=== PATIENT | female | born 1995 | race Caucasian/White ===

== ENCOUNTER 2017-06-01 17:58 | Emergency (ER) | payer OTHER, BC ==
[2017-06-01 18:09] VITALS: BP 172/108
[2017-06-01] MEDS ORDERED: HYDROmorphone 0.5 MG/0.5 ML Syringe IM ONE (19:28)
--- NOTE | 2017-06-01 19:38 | EDM.PDOC ---
ED HPI GENERAL MEDICAL PROBLEM - General Chief Complaint: Back Pain or Injury Stated Complaint: RIB AND ARM PAIN Time Seen by Provider: 06/01/17 19:16 Source of Information: Reports: Patient History Limitations: Reports: No Limitations - History of Present Illness INITIAL COMMENTS - FREE TEXT/NARRATIVE: Patient is a 21-year-old female who is 35 weeks who complains of left- sided chest wall pain. States initially she had pain to the upper back earlier this afternoon that felt like a knot. With increased pain with movement of her left extremity. States around 1500 hrs. She was moving a large stone carving with another individual. She was pulling this object and upon doing so experience increased pain to the left scapula with radiation discomfort along the left lower chest wall worsened with palpation and movement of her left extremity. Pain is described as a sharp/crampy constant sensation with waxing waning in intensity. Worsened with palpation. Described as a muscle spasm. She has not taken any [id number] medications to help alleviate the discomfort nor tried any other means to improve her pain. She is not short of breath but notes discomfort worsens with taking a deep breath. She is 35 weeks and was cleared by OB prior to admission to the ED. Patient has no additional past medical history. She taking take Diclegis and vitamins. Surgical history noncontributory. Patient denies smoking history alcohol use or recreational drugs. She has no history of DVT or PE. Left Upper Back Pain Score (Numeric/FACES): 10 - Related Data Allergies Allergy/AdvReac Type Severity Reaction Status Date / Time adhesive Allergy Cannot Verified 06/01/17 18:09 Remember carrot Allergy Cannot Verified 06/01/17 18:09 Remember codeine Allergy Other Verified 06/01/17 18:09 Fish Containing Products Allergy Other Verified 06/01/17 18:09 peanut Allergy Anaphylactic Verified 06/01/17 18:09 Shock wheat Allergy Cannot Verified 06/01/17 18:09 Remember Home Meds: Home Meds Desog-E.Estradiol/E.Estradiol [Kariva 28 Day] 1 tab PO DAILY 03/11/16 [History] Levocetirizine Dihydrochloride [Xyzal] 5 mg PO DAILY 03/11/16 [History] Methylphenidate HCl [Concerta] 36 mg PO DAILY 03/11/16 [History] Sertraline [Zoloft] 25 mg PO DAILY 03/11/16 [History] Aspirin 325 mg PO BID #60 tablet 03/12/16 [Rx] traMADol [Ultram] 1 - 2 tab PO Q6H PRN #40 tablet 03/12/16 [Rx] Acetaminophen/HYDROcodone [[place] 325-5 MG] 1 tab PO Q6H PRN #10 tablet 06/01/17 [Rx] Past Medical History Respiratory History: Reports: Asthma Gastrointestinal History: Reports: Other (See Below) Other Gastrointestinal History: enzyme deficiency trouble with digesting milk Other Musculoskeletal History: chronic shoulder/neck discomfort Psychiatric History: Reports: ADHD, Anxiety, Depression Dermatologic History: Reports: Eczema Other Dermatologic History: skin lesion excsion x 2 - Past Surgical History HEENT Surgical History: Reports: Tonsillectomy Social & Family History - Family History Family Medical History: Noncontributory - Tobacco Use Smoking Status *Q: Never Smoker Second Hand Smoke Exposure: Yes - Caffeine Use Caffeine Use: Reports: Soda, Tea - Recreational Drug Use Recreational Drug Use: Yes ED ROS GENERAL - Review of Systems Review Of Systems: See Below Constitutional: Denies: Fever, Chills Respiratory: Denies: Shortness of Breath, Wheezing, Cough, Sputum, Hemoptysis Cardiovascular: Reports: Chest Pain. Denies: Dyspnea on Exertion, Palpitations , Syncope GI/Abdominal: Denies: Abdominal Pain, Constipation, Diarrhea, Nausea, Vomiting : Reports: No Symptoms Musculoskeletal: Reports: No Symptoms Skin: Reports: No Symptoms Neurological: Reports: No Symptoms Hematologic/Lymphatic: Reports: Anemia (Hx of anemia. ) ED EXAM, GENERAL - Physical Exam Exam: See Below Exam Limited By: No Limitations General Appearance: Alert, WD/WN, Moderate Distress Ears: Hearing Grossly Normal Nose: Normal Inspection Throat/Mouth: Normal Voice, No Airway Compromise Neck: Normal Inspection, Supple Respiratory/Chest: No Respiratory Distress, Lungs Clear, Normal Breath Sounds, No Accessory Muscle Use, Other (tenderness to the left lower rib cage (mid clavicular) radiates around to her back. Increased pain with palpation and lifting of the left arm above the shoulder. Pain is a crampy sharp sensation described as a muscle spasm.). No: Pleural Rub Cardiovascular: Normal Peripheral Pulses, Regular Rate, Rhythm, No Murmur Peripheral Pulses: 2+: Radial (L) GI/Abdominal: Normal Bowel Sounds, Soft, Non-Tender (Including no pain with palpation underneath the left rib cage.), No Organomegaly, No Distention Back Exam: Normal Inspection, Full Range of Motion, Other (Pain along the superior aspect of the left scapula with palpation. No bruising, bony deformities, ecchymosis present.). No: Paraspinal Tenderness, Vertebral Tenderness Extremities: Normal Inspection, Normal Range of Motion, Non-Tender, No Pedal Edema, Normal Capillary Refill Neurological: Alert, Oriented, CN II-XII Intact, Normal Cognition Psychiatric: Normal Affect, Normal Mood Skin Exam: Warm, Dry, Intact, Normal Color, No Rash Course - Vital Signs Last Recorded V/S: Last Vital Signs Temp 97.8 F 06/01/17 18:05 Pulse 99 06/01/17 18:05 Resp 16 06/01/17 18:05 BP 172/108 H 06/01/17 18:05 Pulse Ox 100 06/01/17 18:05 - Orders/Labs/Meds Meds: Medications Discontinued Medications Generic Name Dose Route Start Last Admin Trade Name Mera PRN Reason Stop Dose Admin Hydromorphone HCl 0.5 mg 06/01/17 19:28 06/01/17 19:35 Dilaudid IM 06/01/17 19:29 0.5 mg ONETIME ONE Administration Ondansetron HCl 4 mg 06/01/17 20:15 06/01/17 20:19 Zofran Odt PO 06/01/17 20:16 4 mg ONETIME ONE Administration - Re-Assessments/Exams Free Text/Narrative Re-Assessment/Exam: Examination elicited increased pain along the bottom of the left rib cage extending from the mid clavicular region along the rib cage into her back. States the pain came on abruptly at 1500 hrs with worsening symptoms noted since onset. Pain is worsened with palpation, taking a deep breath, and with lifting arm above her shoulder. Pain decreases with lowering arm to side and resting. No known precipitating factors contributing to the pain. She is 35 wks with recent evaluation indicating everything is okay. She is due in one month. Overall has been present with no issues. Ordered dilaudid 0.5mg IM for pain control. Will not obtain CXR with abdominal shielding, patient refuses. Discussed the case with Dr. Carvalho to which he agrees with plan. Most likely etiology of current complaint is muscle related. Low probability for PE or spontaneous pneumothorax. No labs will be obtained. Of note patient states today she was moving a large carved stone. She was pulling across her body. Pain worsened after doing so. 06/01/17 20:19 Patient complaining of nausea. Ordered Zofran 4 mg ODT. 06/01/17 20:59 moderate relief of pain with the above therapies. Pain still persists to the lower rib region worsen with lifting the arm above the shoulders.There is also pain with palpation. Vital signs are stable. 155/98, heart rate 97, SPO2 100%. Patient started vomiting after administration of Dilaudid. She feels quite a bit better. She is ready to be discharged home. Will send the patient home with pain medications [place] 5-325 to which she can take intermittently for severe pain. No further testing will be obtained at this time. Departure - Departure Time of Disposition: 21:02 Disposition: Home, Self-Care 01 Condition: Good Clinical Impression: Left-sided chest wall pain - Discharge Information Prescriptions: Acetaminophen/HYDROcodone [[place] 325-5 MG] 1 tab PO Q6H PRN #10 tablet PRN Reason: Pain (Severe 7-10) Instructions: Muscle Strain, [id number], Pain Medicine Instructions, Easy-to- Read, Back Pain, Adult, [id number] Referrals: Rayo Villa MD [Primary Care Provider] - Forms: ED Department Discharge Additional Instructions: Refrain from any activities that cause worsening pain. Take Tylenol 600 mg every 6 hours for pain. Utilize warm compresses and ice to the affected area as needed. For severe pain not relieved with the above therapies take [place] one tab every 6 hours. Be mindful this will cause constipation thus suggest taking MiraLAX one capful every day with copious amounts of water and increase fiber intake. Follow-up with your [facility] specialist next week for reevaluation. Return to ED for any new or worsening symptoms.
[2017-06-01] MEDS ORDERED: Ondansetron 4 MG Tab.DIS PO ONE (20:15)
== END 2017-06-01 21:19 | disposition home or self-care (01) ==
LOC: JD.ED 17:58
DX: O26.893 Other specified pregnancy related conditions, third trimester (principal); R07.89 Other chest pain; Z3A.37 37 weeks gestation of pregnancy; Z91.09 Other allergy status, other than to drugs and biological substances; Z88.5 Allergy status to narcotic agent; Z91.010 Allergy to peanuts; Z91.02 Food additives allergy status; O99.343 Other mental disorders complicating pregnancy, third trimester; O99.513 Diseases of the respiratory system complicating pregnancy, third trimester; F41.8 Other specified anxiety disorders
CPT/HCPCS: 96372; 99285; A9270; J1170; 99283

== ENCOUNTER 2017-06-30 18:29 | Inpatient (IN) | payer OTHER ==
[2017-06-30] MEDS ORDERED: Sodium Chloride 0.9% 10 ML Syringe FLUSH PRN (19:16)
[2017-06-30] MEDS ORDERED: Labetalol 100 MG/20 ML MDV ONE (19:53)
[2017-06-30] MEDS ORDERED: Labetalol 100 MG/20 ML MDV IVPUSH ONE ×2 (19:53→20:18)
[2017-06-30] MEDS: Sertraline 25 MG Tab PO SCH (20:00)
--- NOTE | 2017-06-30 20:02 | PCM.LDHP ---
L&D History of Present Illness - General Date of Service: 06/30/17 Admit Problem/Dx: Admission Diagnosis/Problem Admission Diagnosis/Problem Source of Information: Patient History Limitations: Reports: No Limitations - History of Present Illness Introduction:: Patient is a 22 y/o at 39 5/7 wks presents for concerns of labor. States that contractions started last night around 2200. Have continued since then and become closely together. No LOF. Getting good FM. No headaches, vision changes, or RUQ pain. - Related Data Allergies/Adverse Reactions: Allergies Allergy/AdvReac Type Severity Reaction Status Date / Time peanut Allergy Severe Anaphylactic Verified 06/30/17 19:08 Shock tree nut Allergy Severe Anaphylactic Verified 06/30/17 19:08 Shock adhesive Allergy Intermediate Blisters Verified 06/30/17 19:05 codeine Allergy Intermediate Hives Verified 06/30/17 19:08 carrot Allergy Unknown Other Verified 06/30/17 19:08 Fish Containing Products Allergy Unknown Other Verified 06/30/17 19:08 wheat Allergy Unknown Other Verified 06/30/17 19:08 Home Medications: Home Meds Desog-E.Estradiol/E.Estradiol [Kariva 28 Day] 1 tab PO DAILY 03/11/16 [History] Levocetirizine Dihydrochloride [Xyzal] 5 mg PO DAILY 03/11/16 [History] Methylphenidate HCl [Concerta] 36 mg PO DAILY 03/11/16 [History] Sertraline [Zoloft] 25 mg PO DAILY 03/11/16 [History] Aspirin 325 mg PO BID #60 tablet 03/12/16 [Rx] traMADol [Ultram] 1 - 2 tab PO Q6H PRN #40 tablet 03/12/16 [Rx] Acetaminophen/HYDROcodone [[place] 325-5 MG] 1 tab PO Q6H PRN #10 tablet 06/01/17 [Rx] Past Medical History Respiratory History: Reports: Asthma Musculoskeletal History: Reports: Other (See Below) Other Musculoskeletal History: chronic shoulder/neck discomfort Psychiatric History: Reports: ADHD, Anxiety, Depression Dermatologic History: Reports: Eczema - Past Surgical History HEENT Surgical History: Reports: Naso-Sinus Surgery (nasal turbinate surgery), Tonsillectomy Musculoskeletal Surgical History: Reports: Arthroscopic Knee Social & Family History - Family History Family Medical History: Noncontributory - Tobacco Use Smoking Status *Q: Never Smoker Second Hand Smoke Exposure: Yes - Caffeine Use Caffeine Use: Reports: Soda, Tea - Alcohol Use Alcohol Use History: No - Recreational Drug Use Recreational Drug Use: Yes H&P Review of Systems - Review of Systems: Review Of Systems: See Below General: Reports: No Symptoms Pulmonary: Reports: No Symptoms Cardiovascular: Reports: No Symptoms Gastrointestinal: Reports: Abdominal Pain Genitourinary: Reports: No Symptoms Musculoskeletal: Reports: No Symptoms Psychiatric: Reports: Anxiety L&D Exam - Exam Exam: See Below - Vital Signs Weight: 65.317 kg - OB Specific Contraction Intensity: Mild Movement: Active Heart Tones: Present Heart Tones per Min: 130 Heart Rate (FHR) Variability: Moderate (6-25 bmp) Presentation: Vertex - Exam General: Alert, Oriented, Cooperative Lungs: Clear to Auscultation, Normal Respiratory Effort Cardiovascular: Regular Rate, Regular Rhythm GI/Abdominal Exam: Soft Genitourinary: Normal external exam Extremities: Normal Inspection Skin: Warm, Dry, Intact Neurological: Reflexes Equal Bilateral DTR: 3+: Patella (L), Patella (R) Psychiatric: Anxious - Patient Data Lab Results Last 24 hrs: Laboratory Results - last 24 hr // Range/Units 19:40 WBC 13.80 H (3.98-10.04) K/mm3 RBC 3.86 L (3.98-5.22) M/mm3 Hgb 12.2 (11.2-15.7) gm/L Hct 35.2 (34.1-44.9) % MCV 91.2 (79.4-94.8) fl MCH 31.6 (25.6-32.2) pg MCHC 34.7 (32.2-35.5) g/dl RDW Std Deviation 41.2 (36.4-46.3) fL Plt Count 295 (182-369) K/mm3 MPV 9.5 (9.4-12.3) fl Neut % (Auto) 71.7 H (34.0-71.1) % Lymph % (Auto) 18.8 L (19.3-51.7) % Potter % (Auto) 8.4 (4.7-12.5) % Eos % (Auto) 0.7 (0.7-5.8) Baso % (Auto) 0.1 (0.1-1.2) % Neut # (Auto) 9.89 H (1.56-6.13) K/mm3 Lymph # (Auto) 2.59 (1.18-3.74) K/mm3 Potter # (Auto) 1.16 H (0.24-0.36) K/mm3 Eos # (Auto) 0.10 (0.04-0.36) K/mm3 Baso # (Auto) 0.02 (0.01-0.08) K/mm3 Result Diagrams: 06/30/17 19:40 06/30/17 19:40 - Problem List (1) 39 weeks gestation of SNOMED Code(s): 34764904 ICD Code: Z3A.39 - 39 WEEKS GESTATION OF Status: Acute Current Visit: Yes (2) Preeclampsia SNOMED Code(s): 460657397 ICD Code: O14.90 - UNSPECIFIED PRE-ECLAMPSIA, UNSPECIFIED TRIMESTER Status : Acute Current Visit: Yes Qualifiers: Trimester: third trimester Qualified Code(s): O14.93 - Unspecified pre- eclampsia, third trimester Problem List Initiated/Reviewed/Updated: Yes Orders Last 24hrs: Active Orders 24 hr Category Date Time Status Bedrest Bathroom Privileges [RC] ASDIRECTED Care 06/30/17 19:16 Active Communication Order [RC] ASDIRECTED Care 06/30/17 19:17 Active Monitoring [RC] CONTINUOUS Care 06/30/17 19:17 Active Notify Provider Status Change [RC] ASDIRECTED Care 06/30/17 19:16 Active Notify Provider Vital Signs [RC] ASDIRECTED Care 06/30/17 19:16 Active Oxygen Therapy [RC] PRN Care 06/30/17 19:17 Active Peripheral IV Care [RC] . DIRECTED Care 06/30/17 19:18 Active Vital Signs [RC] ASDIRECTED Care 06/30/17 19:17 Active ALANINE AMINOTRANSFERASE,ALT [CHEM] Stat Lab 06/30/17 19:40 Received ASPARTATE AMNIOTRANSFERASE,AST [CHEM] Stat Lab 06/30/17 19:40 Received BLOOD UREA NITROGEN,BUN [CHEM] Stat Lab 06/30/17 19:40 Received CREATININE W/GFR [CHEM] Stat Lab 06/30/17 19:40 Received LACTATE DEHYDROGENASE,LDH [CHEM] Stat Lab 06/30/17 19:40 Received TYPE AND SCREEN [BBK] Stat Lab 06/30/17 19:40 Received UA W/O MICROSCOPIC [URIN] Stat Lab 06/30/17 19:16 Ordered URIC ACID [CHEM] Stat Lab 06/30/17 19:40 Received Sertraline [Zoloft] Med 06/30/17 21:00 Active 25 mg PO BEDTIME Sodium Chloride 0.9% [Saline Flush] Med 06/30/17 19:16 Active 10 ml FLUSH ASDIRECTED PRN Blood Pressure [OM.PC] ASDIRECTED Oth 06/30/17 19:30 Ordered Deep Tendon Reflexes [WOMSER] ASDIRECTED Oth 06/30/17 19:30 Ordered PIH Panel [OM.PC] Stat Oth 06/30/17 19:16 Ordered Peripheral IV Insertion Adult [OM.PC] Urgent Oth 06/30/17 19:16 Ordered Medication Orders Sertraline HCl (Zoloft) 25 mg PO BEDTIME CELI Sodium Chloride (Saline Flush) 10 ml FLUSH ASDIRECTED PRN PRN Reason: Keep Vein Open Assessment/Plan Comment:: 22 y/o at 39 5/7 wks presents for concerns of labor - likely not labor, but initial BP's of 163/102, 159/107, and 150/99. Patient is extremely anxious and shaking in exam room, but regardless feel it is pertinent to keep for IOL. Labs ordered. IV placed. IV labetalol, 20 mg, given. Will monitor to see if BP's come down appropriately. If they do will move forward with IOL. If not may need to proceed with PLTCS. ----- Patient BP's after 20 mg of Labetalol are 173/107. Will given 40 mg of IV labetalol. Will start magnesium as well. Labs have returned all WNL. ---- Bp's now 154/90, 139/95, 127/85. Will move forward with IOL. First cytotec placed. Continue magnesium infusion. Will assess BP's closely for need for additional anti-hypertensive agents. GBS negative, no need for antibiotics Brielle Bennett MD
[2017-06-30] MEDS ORDERED: Magnesium Sulfate/Water 2 GM in Premix Bag 1 BAG IV ONE (20:20)
[2017-06-30] MEDS ORDERED: Magnesium Sulfate/Water 100 ML ONE (20:20)
[2017-06-30] MEDS ORDERED: Magnesium Sulfate/Water 4 GM in Premix Bag 1 BAG IV ONE (20:20)
[2017-06-30] MEDS ORDERED: Magnesium Sulfate/Water 50 ML ONE (20:20)
[2017-06-30] MEDS: Lactated Ringers 1,000 ML IV SCH (20:34)
[2017-06-30] MEDS: Misoprostol 25 MCG (1/4 of 100 MCG) Tab ONE (20:50)
[2017-06-30] MEDS: Misoprostol 25 MCG (1/4 of 100 MCG) Tab VAG PRN (20:50)
[2017-06-30] MEDS ORDERED: Misoprostol 100 MCG Tab VAG PRN (20:53)
[2017-06-30] MEDS ORDERED: Zolpidem 5 MG Tab PO PRN (20:53)
[2017-06-30] MEDS ORDERED: Oxytocin/Lactated Ringers 10 UNIT/1,000 ML BAG IV SCH (21:00)
[2017-06-30] MEDS: Magnesium Sulfate/Water 40 GM/1,000 ML BAG IV SCH (21:06)
[2017-06-30] MEDS: Ondansetron 4 MG/2 ML SDV IVPUSH PRN (21:15)
[2017-06-30] MEDS ORDERED: Diphtheria,Pertussis(Acell),Tetanus Vaccine 0.5 ML SDV IM ONE (22:39)
[2017-07-01] MEDS ORDERED: Misoprostol 25 MCG (1/4 of 100 MCG) Tab ONE (01:00)
[2017-07-01] MEDS: Misoprostol 25 MCG (1/4 of 100 MCG) Tab VAG PRN ×2 (01:24→05:03)
[2017-07-01] MEDS: Misoprostol 25 MCG (1/4 of 100 MCG) Tab ONE (01:32)
[2017-07-01] MEDS: Ondansetron 4 MG/2 ML SDV IVPUSH PRN ×2 (01:40→06:36)
[2017-07-01] MEDS ORDERED: diphenhydrAMINE 50 MG/ML SDV IVPUSH PRN (02:09)
[2017-07-01] MEDS ORDERED: fentaNYL 100 MCG/2 ML SDV EPIDUR PRN (02:09)
[2017-07-01] MEDS ORDERED: ePHEDrine 50 MG/ML SDV IVPUSH PRN (02:09)
[2017-07-01] MEDS: Lactated Ringers 1,000 ML IV SCH ×2 (02:21→08:12)
[2017-07-01] MEDS: Bupivacaine/fentaNYL/NS 100 ML Bag EPIDUR SCH ×3 (02:45→18:05)
--- NOTE | 2017-07-01 02:45 | PCM.PREANE ---
Preanesthetic Assessment - Anesthesia/Transfusion/Family Hx Anesthesia History: Prior Anesthesia Without Reaction (combative) Family History of Anesthesia Reaction: No Transfusion History: No Prior Transfusion(s) - Review of Systems General: No Symptoms Pulmonary: No Symptoms Cardiovascular: No Symptoms Gastrointestinal: Nausea (today), Vomiting (today) Neurological: No Symptoms Other: Reports: None, Depression, Anxiety - Physical Assessment Pulse: 89 O2 Sat by Pulse Oximetry: 99 Respiratory Rate: 18 Blood Pressure: 173/107 Vital Signs: Last Vital Signs Temp 98.9 F 06/30/17 20:10 Pulse 89 06/30/17 20:20 Resp 18 06/30/17 20:10 BP 173/107 H 06/30/17 20:20 Pulse Ox 99 06/30/17 20:10 Height: 4 ft 9 in Weight: 65.317 kg ASA Class: 2E Mental Status: Alert & Oriented x3 Airway Class: Mallampati = 1 Dentition: Reports: Normal Dentition Thyro-Mental Finger Breadths: 3 Mouth Opening Finger Breadths: 3 ROM/Head Extension: Full Lungs: Clear to Auscultation, Normal Respiratory Effort Cardiovascular: Regular Rate, Regular Rhythm - Lab Values: Laboratory Last Values WBC 13.80 K/mm3 (3.98-10.04) H 06/30/17 19:40 RBC 3.86 M/mm3 (3.98-5.22) L 06/30/17 19:40 Hgb 12.2 gm/L (11.2-15.7) 06/30/17 19:40 Hct 35.2 % (34.1-44.9) 06/30/17 19:40 MCV 91.2 fl (79.4-94.8) 06/30/17 19:40 MCH 31.6 pg (25.6-32.2) 06/30/17 19:40 MCHC 34.7 g/dl (32.2-35.5) 06/30/17 19:40 RDW Std Deviation 41.2 fL (36.4-46.3) 06/30/17 19:40 Plt Count 295 K/mm3 (182-369) 06/30/17 19:40 MPV 9.5 fl (9.4-12.3) 06/30/17 19:40 Neut % (Auto) 71.7 % (34.0-71.1) H 06/30/17 19:40 Lymph % (Auto) 18.8 % (19.3-51.7) L 06/30/17 19:40 [place] % (Auto) 8.4 % (4.7-12.5) 06/30/17 19:40 Eos % (Auto) 0.7 (0.7-5.8) 06/30/17 19:40 Baso % (Auto) 0.1 % (0.1-1.2) 06/30/17 19:40 Neut # (Auto) 9.89 K/mm3 (1.56-6.13) H 06/30/17 19:40 Lymph # (Auto) 2.59 K/mm3 (1.18-3.74) 06/30/17 19:40 [place] # (Auto) 1.16 K/mm3 (0.24-0.36) H 06/30/17 19:40 Eos # (Auto) 0.10 K/mm3 (0.04-0.36) 06/30/17 19:40 Baso # (Auto) 0.02 K/mm3 (0.01-0.08) 06/30/17 19:40 BUN 10 mg/dL (7-18) 06/30/17 19:40 Creatinine 0.8 mg/dL (0.55-1.02) 06/30/17 19:40 Est Cr Clr Drug Dosing 79.90 mL/min 06/30/17 19:40 Estimated GFR (MDRD) > 60 mL/min (>60) 06/30/17 19:40 Uric Acid 6.2 mg/dL (2.6-6.0) H 06/30/17 19:40 AST 24 U/L (15-37) 06/30/17 19:40 ALT 20 U/L (14-59) 06/30/17 19:40 Lactate Dehydrogenase 139 U/L (81-234) 06/30/17 19:40 Urine Color Yellow (Yellow) 06/30/17 19:30 Urine Appearance Clear (Clear) 06/30/17 19:30 Urine pH 7.0 (5.0-8.0) 06/30/17 19:30 Ur Specific [place] 1.010 (1.005-1.030) 06/30/17 19:30 Urine Protein Negative (Negative) 06/30/17 19:30 Urine Glucose (UA) Negative (Negative) 06/30/17 19:30 Urine Ketones Negative (Negative) 06/30/17 19:30 Urine Occult Blood 1+ (Negative) H 06/30/17 19:30 Urine Nitrite Negative (Negative) 06/30/17 19:30 Urine Bilirubin Negative (Negative) 06/30/17 19:30 Urine Urobilinogen 0.2 (0.2-1.0) 06/30/17 19:30 Ur Leukocyte Esterase Trace (Negative) H 06/30/17 19:30 Urine Opiates Screen Negative (NEGATIVE) 06/30/17 19:30 Ur Buprenorphine Scrn Negative (NEGATIVE) 06/30/17 19:30 Ur Oxycodone Screen Negative (NEGATIVE) 06/30/17 19:30 Urine Methadone Screen Negative (NEGATIVE) 06/30/17 19:30 Ur Propoxyphene Screen Negative (NEGATIVE) 06/30/17 19:30 Ur Barbiturates Screen Negative (NEGATIVE) 06/30/17 19:30 Ur Tricyclics Screen Negative (NEGATIVE) 06/30/17 19:30 Ur Phencyclidine Scrn Negative (NEGATIVE) 06/30/17 19:30 Ur Amphetamine Screen Negative (NEGATIVE) 06/30/17 19:30 U Methamphetamines Scrn Negative (NEGATIVE) 06/30/17 19:30 U Benzodiazepines Scrn Negative (NEGATIVE) 06/30/17 19:30 U Cocaine Metab Screen Negative (NEGATIVE) 06/30/17 19:30 U Marijuana (THC) Screen Negative (NEGATIVE) 06/30/17 19:30 Blood Type B POSITIVE 06/30/17 19:40 Gel Antibody Screen Negative 06/30/17 19:40 - Allergies Allergies/Adverse Reactions: Allergies Allergy/AdvReac Type Severity Reaction Status Date / Time peanut Allergy Severe Anaphylactic Verified 06/30/17 19:08 Shock tree nut Allergy Severe Anaphylactic Verified 06/30/17 19:08 Shock adhesive Allergy Intermediate Blisters Verified 06/30/17 19:05 codeine Allergy Intermediate Hives Verified 06/30/17 19:08 carrot Allergy Unknown Other Verified 06/30/17 19:08 Fish Containing Products Allergy Unknown Other Verified 06/30/17 19:08 wheat Allergy Unknown Other Verified 06/30/17 19:08 - Blood Blood Available: No - Acknowledgements Anesthesia Type Planned: Epidural Pt an Appropriate Candidate for the Planned Anesthesia: Yes Alternatives and Risks of Anesthesia Discussed w Pt/Guardian: Yes Pt/Guardian Understands and Agrees with Anesthesia Plan: Yes PreAnesthesia Questionnaire HEENT History: Reports: Allergic Rhinitis Cardiovascular History: Reports: None Respiratory History: Reports: Asthma (exercise induced) Gastrointestinal History: Reports: GERD, Other (See Below) Other Gastrointestinal History: Enzyme deficiency [employer] History: Reports: : 1 (39 6 days) Para: 0 Musculoskeletal History: Reports: Other (See Below) Other Musculoskeletal History: chronic shoulder/neck discomfort Psychiatric History: Reports: ADHD, Anxiety, Depression Oncologic (Cancer) History: Reports: Other (See Below) Other Oncologic History: Skin cancer Dermatologic History: Reports: Eczema - Past Surgical History HEENT Surgical History: Reports: Naso-Sinus Surgery (nasal turbinate surgery), Oral Surgery, Tonsillectomy Musculoskeletal Surgical History: Reports: Arthroscopic Knee - SUBSTANCE USE Smoking Status *Q: Never Smoker Tobacco Use Within Last Twelve Months: No Second Hand Smoke Exposure: Yes Days Per Week of Alcohol Use: 0 Recreational Drug Use History: No - HOME MEDS Home Medications: Home Meds Sertraline [Zoloft] 25 mg PO DAILY 03/11/16 [History] Doxylamine/Pyridoxine HCl [Diclegis Dr 10-10 mg Tablet] 1 each PO ASDIRECTED [History] Pnv No.122/Iron/Folic Acid [ Multi Tablet] 1 each PO DAILY 06/30/17 [ History] - CURRENT (IN HOUSE) MEDS Current Meds: Current Medications Diphenhydramine HCl (Benadryl) 25 mg IVPUSH Q6H PRN PRN Reason: pruritis Ephedrine Sulfate (Ephedrine Sulfate) 5 mg IVPUSH ASDIRECTED PRN PRN Reason: Hypotension Fentanyl (Sublimaze) 100 mcg EPIDUR Q3H PRN PRN Reason: Pain Fentanyl/Bupivacaine HCl (Fentanyl/Bupivacaine/Ns 2 Mcg-0.125% 100 Ml) 100 ml EPIDUR ASDIRECTED [facility] Lactated Ringer's (Ringers, Lactated) 1,000 mls @ 75 mls/hr IV ASDIRECTED [facility] Last Admin: 07/01/17 02:21 Dose: 999 mls/hr Magnesium Sulfate (Magnesium Sulfate 40 Gm In Water 1000 Ml) 40 gm in 1,000 mls @ 50 mls/hr IV ASDIRECTED [facility] Last Admin: 06/30/17 21:06 Dose: 50 mls/hr Oxytocin/Lactated Ringer's (Pitocin In Lr 10 Units/1,000 Ml) 10 unit in 1,000 mls @ 500 mls/hr IV .CONTINUOUS [facility] Misoprostol (Cytotec) 25 mcg VAG Q4H PRN PRN Reason: cervical ripening Stop: 07/01/17 04:54 Last Admin: 07/01/17 01:24 Dose: 25 mcg Ondansetron HCl (Zofran) 4 mg IVPUSH Q4H PRN PRN Reason: Nausea/Vomiting Last Admin: 07/01/17 01:40 Dose: 4 mg Sertraline HCl (Zoloft) 25 mg PO BEDTIME [facility]ELI Last Admin: 06/30/17 20:00 Dose: 25 mg Sodium Chloride (Saline Flush) 10 ml FLUSH ASDIRECTED PRN PRN Reason: Keep Vein Open Zolpidem Tartrate (Ambien) 5 mg PO BEDTIME PRN PRN Reason: Insomnia Last Admin: 06/30/17 23:00 Dose: 5 mg Discontinued Medications Diphtheria/Tetanus/Acell Pertussis (Adacel) 0.5 ml IM .ONCE ONE Stop: 06/30/17 22:40 Magnesium Sulfate 2 gm/ Premix 50 mls @ 300 mls/hr IV ONETIME ONE Stop: 06/30/17 20:29 Last Admin: 06/30/17 20:33 Dose: 300 mls/hr Magnesium Sulfate 4 gm/ Premix 100 mls @ 300 mls/hr IV ONETIME ONE Stop: 06/30/17 20:39 Last Admin: 06/30/17 20:43 Dose: 300 mls/hr Magnesium Sulfate (Magnesium Sulfate 4 Gm In Water 100 Ml) Confirm Administered Dose 100 mls @ as directed .ROUTE .STK-MED ONE Stop: 06/30/17 20:21 Last Admin: 06/30/17 21:05 Dose: Not Given Magnesium Sulfate (Magnesium Sulfate 2 Gm In Water 50 Ml) Confirm Administered Dose 50 mls @ as directed .ROUTE .STK-MED ONE Stop: 06/30/17 20:21 Last Admin: 06/30/17 21:05 Dose: Not Given Labetalol HCl (Normodyne) 20 mg IVPUSH ONETIME ONE PRN Reason: Protocol Stop: 06/30/17 19:54 Last Admin: 06/30/17 20:00 Dose: 20 mg Labetalol HCl (Normodyne) Confirm Administered Dose 100 mg .ROUTE .STK-MED ONE Stop: 06/30/17 19:54 Last Admin: 06/30/17 21:05 Dose: Not Given Labetalol HCl (Normodyne) 40 mg IVPUSH ONETIME ONE PRN Reason: Protocol Stop: 06/30/17 20:19 Last Admin: 06/30/17 20:20 Dose: 40 mg Misoprostol (Cytotec) Confirm Administered Dose 25 mcg .ROUTE .STK-MED ONE Stop: 06/30/17 20:39 Last Admin: 07/01/17 01:32 Dose: Not Given Misoprostol (Cytotec) 25 mcg VAG Q4H PRN PRN Reason: cervical ripening Stop: 07/01/17 04:54 Misoprostol (Cytotec) Confirm Administered Dose 25 mcg .ROUTE .STK-MED ONE Stop: 07/01/17 01:01 Last Admin: 07/01/17 01:32 Dose: Not Given
--- NOTE | 2017-07-01 07:57 | PCM.PNLD ---
Labor Progress Note - VS & Meds Vital Signs: Last Vital Signs Temp 37.2 C 06/30/17 20:10 Pulse 89 07/01/17 02:45 Resp 18 07/01/17 02:45 BP 173/107 H 07/01/17 02:45 Pulse Ox 99 07/01/17 02:45 Active Medications: Current Medications Diphenhydramine HCl (Benadryl) 25 mg IVPUSH Q6H PRN PRN Reason: pruritis Ephedrine Sulfate (Ephedrine Sulfate) 5 mg IVPUSH ASDIRECTED PRN PRN Reason: Hypotension Fentanyl (Sublimaze) 100 mcg EPIDUR Q3H PRN PRN Reason: Pain Last Admin: 07/01/17 02:46 Dose: 100 mcg Fentanyl/Bupivacaine HCl (Fentanyl/Bupivacaine/Ns 2 Mcg-0.125% 100 Ml) 100 ml EPIDUR ASDIRECTED [facility] Last Admin: 07/01/17 02:45 Dose: 100 ml Lactated Ringer's (Ringers, Lactated) 1,000 mls @ 75 mls/hr IV ASDIRECTED [facility] Last Admin: 07/01/17 02:21 Dose: 999 mls/hr Magnesium Sulfate (Magnesium Sulfate 40 Gm In Water 1000 Ml) 40 gm in 1,000 mls @ 50 mls/hr IV ASDIRECTED [facility] Last Admin: 06/30/17 21:06 Dose: 50 mls/hr Oxytocin/Lactated Ringer's (Pitocin In Lr 10 Units/1,000 Ml) 10 unit in 1,000 mls @ 500 mls/hr IV .CONTINUOUS [facility] Ondansetron HCl (Zofran) 4 mg IVPUSH Q4H PRN PRN Reason: Nausea/Vomiting Last Admin: 07/01/17 06:36 Dose: 4 mg Sertraline HCl (Zoloft) 25 mg PO BEDTIME [facility]ELI Last Admin: 06/30/17 20:00 Dose: 25 mg Sodium Chloride (Saline Flush) 10 ml FLUSH ASDIRECTED PRN PRN Reason: Keep Vein Open Zolpidem Tartrate (Ambien) 5 mg PO BEDTIME PRN PRN Reason: Insomnia Last Admin: 06/30/17 23:00 Dose: 5 mg Discontinued Medications Diphtheria/Tetanus/Acell Pertussis (Adacel) 0.5 ml IM .ONCE ONE Stop: 06/30/17 22:40 Magnesium Sulfate 2 gm/ Premix 50 mls @ 300 mls/hr IV ONETIME ONE Stop: 06/30/17 20:29 Last Admin: 06/30/17 20:33 Dose: 300 mls/hr Magnesium Sulfate 4 gm/ Premix 100 mls @ 300 mls/hr IV ONETIME ONE Stop: 06/30/17 20:39 Last Admin: 06/30/17 20:43 Dose: 300 mls/hr Magnesium Sulfate (Magnesium Sulfate 4 Gm In Water 100 Ml) Confirm Administered Dose 100 mls @ as directed .ROUTE .STK-MED ONE Stop: 06/30/17 20:21 Last Admin: 06/30/17 21:05 Dose: Not Given Magnesium Sulfate (Magnesium Sulfate 2 Gm In Water 50 Ml) Confirm Administered Dose 50 mls @ as directed .ROUTE .STK-MED ONE Stop: 06/30/17 20:21 Last Admin: 06/30/17 21:05 Dose: Not Given Labetalol HCl (Normodyne) 20 mg IVPUSH ONETIME ONE PRN Reason: Protocol Stop: 06/30/17 19:54 Last Admin: 06/30/17 20:00 Dose: 20 mg Labetalol HCl (Normodyne) Confirm Administered Dose 100 mg .ROUTE .STK-MED ONE Stop: 06/30/17 19:54 Last Admin: 06/30/17 21:05 Dose: Not Given Labetalol HCl (Normodyne) 40 mg IVPUSH ONETIME ONE PRN Reason: Protocol Stop: 06/30/17 20:19 Last Admin: 06/30/17 20:20 Dose: 40 mg Misoprostol (Cytotec) Confirm Administered Dose 25 mcg .ROUTE .STK-MED ONE Stop: 06/30/17 20:39 Last Admin: 07/01/17 01:32 Dose: Not Given Misoprostol (Cytotec) 25 mcg VAG Q4H PRN PRN Reason: cervical ripening Stop: 07/01/17 04:54 Misoprostol (Cytotec) Confirm Administered Dose 25 mcg .ROUTE .STK-MED ONE Stop: 07/01/17 01:01 Last Admin: 07/01/17 01:32 Dose: Not Given Misoprostol (Cytotec) 25 mcg VAG Q4H PRN PRN Reason: cervical ripening Stop: 07/01/17 04:54 Last Admin: 07/01/17 05:03 Dose: 25 mcg - Uterine Contractions Uterine Monitoring Mode: External [place] Contraction Intensity: Moderate Uterine Resting Tone: Soft - Monitoring Monitor Mode: External Ultrasound Heart Rate (FHR) Baseline: 115 Heart Rate (FHR) Variability: Moderate (6-25 bmp) Accelerations: Present, 15x15 Decelerations: Early Strip Review: Category I - Vaginal Exam Dilation (cm): 4 Effacement (Percent): 75 Station: -2 Cervical Position: Midposition - Labor Progress (Free Text) Labor Progress: Patient received 2nd cytotec around 0100. Became very uncomfortable and had epidural placed. 2nd cytotec placed around 0500. Was 2-3 cm then. Had SROM around 0600. Fluid meconium stained. Just checked and now more like 4 cm. Continue with present management. At 0900 will consider initiation of pitocin if needed. BP's overnight normal to mild range. Has not required additional anti- hypertensives. UOP excellent (not yet formally documented in chart, but reviewed with nursing team). Patient asymptomatic. Tolerating magnesium well. Continue magnesium through delivery and .
[2017-07-01] MEDS ORDERED: Promethazine 25 MG/ML SDV IM ONE (08:21)
[2017-07-01] MEDS ORDERED: Oxytocin/Lactated Ringers 10 UNIT/1,000 ML BAG IV SCH (09:15)
--- NOTE | 2017-07-01 11:58 | PCM.PNLD ---
Labor Progress Note - VS & Meds Vital Signs: Last Vital Signs Temp 37.2 C 06/30/17 20:10 Pulse 89 07/01/17 02:45 Resp 18 07/01/17 02:45 BP 173/107 H 07/01/17 02:45 Pulse Ox 99 07/01/17 02:45 Active Medications: Current Medications Diphenhydramine HCl (Benadryl) 25 mg IVPUSH Q6H PRN PRN Reason: pruritis Ephedrine Sulfate (Ephedrine Sulfate) 5 mg IVPUSH ASDIRECTED PRN PRN Reason: Hypotension Fentanyl (Sublimaze) 100 mcg EPIDUR Q3H PRN PRN Reason: Pain Last Admin: 07/01/17 02:46 Dose: 100 mcg Fentanyl/Bupivacaine HCl (Fentanyl/Bupivacaine/Ns 2 Mcg-0.125% 100 Ml) 100 ml EPIDUR ASDIRECTED [facility] Last Admin: 07/01/17 10:39 Dose: 100 ml Lactated Ringer's (Ringers, Lactated) 1,000 mls @ 75 mls/hr IV ASDIRECTED [facility] Last Admin: 07/01/17 08:12 Dose: 999 mls/hr Magnesium Sulfate (Magnesium Sulfate 40 Gm In Water 1000 Ml) 40 gm in 1,000 mls @ 50 mls/hr IV ASDIRECTED [facility] Last Admin: 06/30/17 21:06 Dose: 50 mls/hr Oxytocin/Lactated Ringer's (Pitocin In Lr 10 Units/1,000 Ml) 10 unit in 1,000 mls @ 500 mls/hr IV .CONTINUOUS CELI Oxytocin/Lactated Ringer's (Pitocin In Lr 10 Units/1,000 Ml) 10 unit in 1,000 mls @ 12 mls/hr IV TITRATE CELI; 2 MUNITS/MIN PRN Reason: Protocol Last Titration: 07/01/17 10:28 Dose: 4 munits/min, 24 mls/hr Ondansetron HCl (Zofran) 4 mg IVPUSH Q4H PRN PRN Reason: Nausea/Vomiting Last Admin: 07/01/17 06:36 Dose: 4 mg Sertraline HCl (Zoloft) 25 mg PO BEDTIME [facility] Last Admin: 06/30/17 20:00 Dose: 25 mg Sodium Chloride (Saline Flush) 10 ml FLUSH ASDIRECTED PRN PRN Reason: Keep Vein Open Zolpidem Tartrate (Ambien) 5 mg PO BEDTIME PRN PRN Reason: Insomnia Last Admin: 06/30/17 23:00 Dose: 5 mg Discontinued Medications Diphtheria/Tetanus/Acell Pertussis (Adacel) 0.5 ml IM .ONCE ONE Stop: 06/30/17 22:40 Magnesium Sulfate 2 gm/ Premix 50 mls @ 300 mls/hr IV ONETIME ONE Stop: 06/30/17 20:29 Last Admin: 06/30/17 20:33 Dose: 300 mls/hr Magnesium Sulfate 4 gm/ Premix 100 mls @ 300 mls/hr IV ONETIME ONE Stop: 06/30/17 20:39 Last Admin: 06/30/17 20:43 Dose: 300 mls/hr Magnesium Sulfate (Magnesium Sulfate 4 Gm In Water 100 Ml) Confirm Administered Dose 100 mls @ as directed .ROUTE .STK-MED ONE Stop: 06/30/17 20:21 Last Admin: 06/30/17 21:05 Dose: Not Given Magnesium Sulfate (Magnesium Sulfate 2 Gm In Water 50 Ml) Confirm Administered Dose 50 mls @ as directed .ROUTE .STK-MED ONE Stop: 06/30/17 20:21 Last Admin: 06/30/17 21:05 Dose: Not Given Labetalol HCl (Normodyne) 20 mg IVPUSH ONETIME ONE PRN Reason: Protocol Stop: 06/30/17 19:54 Last Admin: 06/30/17 20:00 Dose: 20 mg Labetalol HCl (Normodyne) Confirm Administered Dose 100 mg .ROUTE .STK-MED ONE Stop: 06/30/17 19:54 Last Admin: 06/30/17 21:05 Dose: Not Given Labetalol HCl (Normodyne) 40 mg IVPUSH ONETIME ONE PRN Reason: Protocol Stop: 06/30/17 20:19 Last Admin: 06/30/17 20:20 Dose: 40 mg Misoprostol (Cytotec) Confirm Administered Dose 25 mcg .ROUTE .STK-MED ONE Stop: 06/30/17 20:39 Last Admin: 07/01/17 01:32 Dose: Not Given Misoprostol (Cytotec) 25 mcg VAG Q4H PRN PRN Reason: cervical ripening Stop: 07/01/17 04:54 Misoprostol (Cytotec) Confirm Administered Dose 25 mcg .ROUTE .STK-MED ONE Stop: 07/01/17 01:01 Last Admin: 07/01/17 01:32 Dose: Not Given Misoprostol (Cytotec) 25 mcg VAG Q4H PRN PRN Reason: cervical ripening Stop: 07/01/17 04:54 Last Admin: 07/01/17 05:03 Dose: 25 mcg Promethazine HCl (Phenergan) 12.5 mg IM ONETIME ONE Stop: 07/01/17 08:51 Last Admin: 07/01/17 09:19 Dose: 12.5 mg - Uterine Contractions Uterine Monitoring Mode: IUPC Contraction Intensity: Moderate to Strong Uterine Resting Tone: Soft - Monitoring Monitor Mode: External Ultrasound Heart Rate (FHR) Baseline: 115 Heart Rate (FHR) Variability: Moderate (6-25 bmp) Accelerations: Present, 15x15 Decelerations: Early Strip Review: Category I - Vaginal Exam Dilation (cm): 5-6 Effacement (Percent): 90 Station: 0 Cervical Position: Anterior - Labor Progress (Free Text) Labor Progress: Patient overall comfortable with epidural. Has had continued waves of nausea/ vomiting. Repeat labs pending to ensure no evolving liver abnormalities. BP's have been mostly upper mild range. Rare, intermittent severe pressures present , but mostly with vomiting/patient agitation. Defer additional anti- hypertensives at this time. Pitocin started around 0945. Currently at 4. Continue per protocol.
[2017-07-01] MEDS ORDERED: Labetalol 100 MG Tab PO ONE (12:37)
[2017-07-01] MEDS ORDERED: Acetaminophen 325 MG Tab PO PRN (12:51)
[2017-07-01] MEDS: Magnesium Sulfate/Water 40 GM/1,000 ML BAG IV SCH (16:44)
--- NOTE | 2017-07-01 16:54 | PCM.PNLD ---
Labor Progress Note - VS & Meds Vital Signs: Last Vital Signs Temp 37.2 C 06/30/17 20:10 Pulse 111 H 07/01/17 12:45 Resp 18 07/01/17 02:45 BP 152/93 H 07/01/17 12:45 Pulse Ox 99 07/01/17 02:45 Active Medications: Current Medications Acetaminophen (Tylenol) 650 mg PO Q6H PRN PRN Reason: Headache Last Admin: 07/01/17 13:03 Dose: 650 mg Diphenhydramine HCl (Benadryl) 25 mg IVPUSH Q6H PRN PRN Reason: pruritis Ephedrine Sulfate (Ephedrine Sulfate) 5 mg IVPUSH ASDIRECTED PRN PRN Reason: Hypotension Fentanyl (Sublimaze) 100 mcg EPIDUR Q3H PRN PRN Reason: Pain Last Admin: 07/01/17 02:46 Dose: 100 mcg Fentanyl/Bupivacaine HCl (Fentanyl/Bupivacaine/Ns 2 Mcg-0.125% 100 Ml) 100 ml EPIDUR ASDIRECTED [facility] Last Admin: 07/01/17 10:39 Dose: 100 ml Lactated Ringer's (Ringers, Lactated) 1,000 mls @ 75 mls/hr IV ASDIRECTED [facility] Last Admin: 07/01/17 08:12 Dose: 75 mls/hr Magnesium Sulfate (Magnesium Sulfate 40 Gm In Water 1000 Ml) 40 gm in 1,000 mls @ 50 mls/hr IV ASDIRECTED [facility] Last Admin: 07/01/17 16:44 Dose: 50 mls/hr Oxytocin/Lactated Ringer's (Pitocin In Lr 10 Units/1,000 Ml) 10 unit in 1,000 mls @ 500 mls/hr IV .CONTINUOUS [facility] Oxytocin/Lactated Ringer's (Pitocin In Lr 10 Units/1,000 Ml) 10 unit in 1,000 mls @ 12 mls/hr IV TITRATE CELI; 2 MUNITS/MIN PRN Reason: Protocol Last Titration: 07/01/17 15:36 Dose: 8 munits/min, 48 mls/hr Ondansetron HCl (Zofran) 4 mg IVPUSH Q4H PRN PRN Reason: Nausea/Vomiting Last Admin: 07/01/17 06:36 Dose: 4 mg Sertraline HCl (Zoloft) 25 mg PO BEDTIME [facility] Last Admin: 06/30/17 20:00 Dose: 25 mg Sodium Chloride (Saline Flush) 10 ml FLUSH ASDIRECTED PRN PRN Reason: Keep Vein Open Zolpidem Tartrate (Ambien) 5 mg PO BEDTIME PRN PRN Reason: Insomnia Last Admin: 06/30/17 23:00 Dose: 5 mg Discontinued Medications Diphtheria/Tetanus/Acell Pertussis (Adacel) 0.5 ml IM .ONCE ONE Stop: 06/30/17 22:40 Magnesium Sulfate 2 gm/ Premix 50 mls @ 300 mls/hr IV ONETIME ONE Stop: 06/30/17 20:29 Last Admin: 06/30/17 20:33 Dose: 300 mls/hr Magnesium Sulfate 4 gm/ Premix 100 mls @ 300 mls/hr IV ONETIME ONE Stop: 06/30/17 20:39 Last Admin: 06/30/17 20:43 Dose: 300 mls/hr Magnesium Sulfate (Magnesium Sulfate 4 Gm In Water 100 Ml) Confirm Administered Dose 100 mls @ as directed .ROUTE .STK-MED ONE Stop: 06/30/17 20:21 Last Admin: 06/30/17 21:05 Dose: Not Given Magnesium Sulfate (Magnesium Sulfate 2 Gm In Water 50 Ml) Confirm Administered Dose 50 mls @ as directed .ROUTE .STK-MED ONE Stop: 06/30/17 20:21 Last Admin: 06/30/17 21:05 Dose: Not Given Labetalol HCl (Normodyne) 20 mg IVPUSH ONETIME ONE PRN Reason: Protocol Stop: 06/30/17 19:54 Last Admin: 06/30/17 20:00 Dose: 20 mg Labetalol HCl (Normodyne) Confirm Administered Dose 100 mg .ROUTE .STK-MED ONE Stop: 06/30/17 19:54 Last Admin: 06/30/17 21:05 Dose: Not Given Labetalol HCl (Normodyne) 40 mg IVPUSH ONETIME ONE PRN Reason: Protocol Stop: 06/30/17 20:19 Last Admin: 06/30/17 20:20 Dose: 40 mg Labetalol HCl (Normodyne) 200 mg PO ONETIME ONE Stop: 07/01/17 12:38 Last Admin: 07/01/17 12:45 Dose: 200 mg Misoprostol (Cytotec) Confirm Administered Dose 25 mcg .ROUTE .STK-MED ONE Stop: 06/30/17 20:39 Last Admin: 07/01/17 01:32 Dose: Not Given Misoprostol (Cytotec) 25 mcg VAG Q4H PRN PRN Reason: cervical ripening Stop: 07/01/17 04:54 Misoprostol (Cytotec) Confirm Administered Dose 25 mcg .ROUTE .STK-MED ONE Stop: 07/01/17 01:01 Last Admin: 07/01/17 01:32 Dose: Not Given Misoprostol (Cytotec) 25 mcg VAG Q4H PRN PRN Reason: cervical ripening Stop: 07/01/17 04:54 Last Admin: 07/01/17 05:03 Dose: 25 mcg Promethazine HCl (Phenergan) 12.5 mg IM ONETIME ONE Stop: 07/01/17 08:51 Last Admin: 07/01/17 09:19 Dose: 12.5 mg - Uterine Contractions Uterine Monitoring Mode: External [place], IUPC Contraction Intensity: Moderate to Strong Uterine Resting Tone: Soft - Monitoring Monitor Mode: External Ultrasound Heart Rate (FHR) Baseline: 115 Heart Rate (FHR) Variability: Moderate (6-25 bmp) Accelerations: Present, 15x15 Decelerations: Early Strip Review: Category I - Vaginal Exam Dilation (cm): 7-8 Effacement (Percent): 100 Station: 1 Cervical Position: Anterior - Labor Progress (Free Text) Labor Progress: Patient doing well. Had more upper mild range and few severe range BP's after I was here. Given a 200 mg dose of labetalol and since has had essentially all normal range BP's. Labs returned from noon draw stable compared to last night. Creatinine from 0.8 to 1.0. UOP has been appropriate overall, but last 2 hrs only ~50 cc. [place] flushed with return of another 35 cc of urine. Continue to monitor closely. IUPC not reading well and so removed. Patient making slow, but steady change. Continue present management. Anticipate
--- NOTE | 2017-07-01 20:02 | PCM.PNLD ---
Labor Progress Note - VS & Meds Vital Signs: Last Vital Signs Temp 37.2 C 06/30/17 20:10 Pulse 111 H 07/01/17 12:45 Resp 18 07/01/17 02:45 BP 152/93 H 07/01/17 12:45 Pulse Ox 99 07/01/17 02:45 Active Medications: Current Medications Acetaminophen (Tylenol) 650 mg PO Q6H PRN PRN Reason: Headache Last Admin: 07/01/17 13:03 Dose: 650 mg Diphenhydramine HCl (Benadryl) 25 mg IVPUSH Q6H PRN PRN Reason: pruritis Ephedrine Sulfate (Ephedrine Sulfate) 5 mg IVPUSH ASDIRECTED PRN PRN Reason: Hypotension Fentanyl (Sublimaze) 100 mcg EPIDUR Q3H PRN PRN Reason: Pain Last Admin: 07/01/17 02:46 Dose: 100 mcg Fentanyl/Bupivacaine HCl (Fentanyl/Bupivacaine/Ns 2 Mcg-0.125% 100 Ml) 100 ml EPIDUR ASDIRECTED CELI Last Admin: 07/01/17 18:05 Dose: 100 ml Lactated Ringer's (Ringers, Lactated) 1,000 mls @ 75 mls/hr IV ASDIRECTED CELI Last Admin: 07/01/17 08:12 Dose: 75 mls/hr Magnesium Sulfate (Magnesium Sulfate 40 Gm In Water 1000 Ml) 40 gm in 1,000 mls @ 50 mls/hr IV ASDIRECTED CELI Last Admin: 07/01/17 16:44 Dose: 50 mls/hr Oxytocin/Lactated Ringer's (Pitocin In Lr 10 Units/1,000 Ml) 10 unit in 1,000 mls @ 500 mls/hr IV .CONTINUOUS CELI Oxytocin/Lactated Ringer's (Pitocin In Lr 10 Units/1,000 Ml) 10 unit in 1,000 mls @ 12 mls/hr IV TITRATE CELI; 2 MUNITS/MIN PRN Reason: Protocol Last Titration: 07/01/17 19:52 Dose: 12 munits/min, 72 mls/hr Ondansetron HCl (Zofran) 4 mg IVPUSH Q4H PRN PRN Reason: Nausea/Vomiting Last Admin: 07/01/17 06:36 Dose: 4 mg Sertraline HCl (Zoloft) 25 mg PO BEDTIME CELI Last Admin: 06/30/17 20:00 Dose: 25 mg Sodium Chloride (Saline Flush) 10 ml FLUSH ASDIRECTED PRN PRN Reason: Keep Vein Open Zolpidem Tartrate (Ambien) 5 mg PO BEDTIME PRN PRN Reason: Insomnia Last Admin: 06/30/17 23:00 Dose: 5 mg Discontinued Medications Diphtheria/Tetanus/Acell Pertussis (Adacel) 0.5 ml IM .ONCE ONE Stop: 06/30/17 22:40 Magnesium Sulfate 2 gm/ Premix 50 mls @ 300 mls/hr IV ONETIME ONE Stop: 06/30/17 20:29 Last Admin: 06/30/17 20:33 Dose: 300 mls/hr Magnesium Sulfate 4 gm/ Premix 100 mls @ 300 mls/hr IV ONETIME ONE Stop: 06/30/17 20:39 Last Admin: 06/30/17 20:43 Dose: 300 mls/hr Magnesium Sulfate (Magnesium Sulfate 4 Gm In Water 100 Ml) Confirm Administered Dose 100 mls @ as directed .ROUTE .STK-MED ONE Stop: 06/30/17 20:21 Last Admin: 06/30/17 21:05 Dose: Not Given Magnesium Sulfate (Magnesium Sulfate 2 Gm In Water 50 Ml) Confirm Administered Dose 50 mls @ as directed .ROUTE .STK-MED ONE Stop: 06/30/17 20:21 Last Admin: 06/30/17 21:05 Dose: Not Given Labetalol HCl (Normodyne) 20 mg IVPUSH ONETIME ONE PRN Reason: Protocol Stop: 06/30/17 19:54 Last Admin: 06/30/17 20:00 Dose: 20 mg Labetalol HCl (Normodyne) Confirm Administered Dose 100 mg .ROUTE .STK-MED ONE Stop: 06/30/17 19:54 Last Admin: 06/30/17 21:05 Dose: Not Given Labetalol HCl (Normodyne) 40 mg IVPUSH ONETIME ONE PRN Reason: Protocol Stop: 06/30/17 20:19 Last Admin: 06/30/17 20:20 Dose: 40 mg Labetalol HCl (Normodyne) 200 mg PO ONETIME ONE Stop: 07/01/17 12:38 Last Admin: 07/01/17 12:45 Dose: 200 mg Misoprostol (Cytotec) Confirm Administered Dose 25 mcg .ROUTE .STK-MED ONE Stop: 06/30/17 20:39 Last Admin: 07/01/17 01:32 Dose: Not Given Misoprostol (Cytotec) 25 mcg VAG Q4H PRN PRN Reason: cervical ripening Stop: 07/01/17 04:54 Misoprostol (Cytotec) Confirm Administered Dose 25 mcg .ROUTE .STK-MED ONE Stop: 07/01/17 01:01 Last Admin: 07/01/17 01:32 Dose: Not Given Misoprostol (Cytotec) 25 mcg VAG Q4H PRN PRN Reason: cervical ripening Stop: 07/01/17 04:54 Last Admin: 07/01/17 05:03 Dose: 25 mcg Promethazine HCl (Phenergan) 12.5 mg IM ONETIME ONE Stop: 07/01/17 08:51 Last Admin: 07/01/17 09:19 Dose: 12.5 mg - Uterine Contractions Uterine Monitoring Mode: External [place] Contraction Intensity: Moderate to Strong Uterine Resting Tone: Soft - Monitoring Monitor Mode: External Ultrasound Heart Rate (FHR) Baseline: 110 Heart Rate (FHR) Variability: Moderate (6-25 bmp) Accelerations: Present, 15x15 Decelerations: None Strip Review: Category I - Vaginal Exam Dilation (cm): 8-9 Effacement (Percent): 100 Station: 1 Cervical Position: Anterior - Labor Progress (Free Text) Labor Progress: Patient overall doing well. Pitocin at 10. Making slow change, but fetus now with more molding of the head. Reviewed this finding with patient and family. Will re-check in about 1.5-2 hours. If similar exam may need to move fowrard with for FTP. They agree. BP's have been mild range. Has had 250 cc UOP in the last 2 hours. Continues to otherwise do well on magnesium.
[2017-07-01] MEDS ORDERED: Metoclopramide 10 MG/2 ML SDV IVPUSH ONE (22:19)
[2017-07-01] MEDS ORDERED: Citric Acid/Sodium Citrate Solution 30 ML Cup PO ONE (22:19)
--- NOTE | 2017-07-01 22:24 | PCM.SN ---
- Free Text/Narrative Note: Patient with about 9 cm/rim of cervix one hour ago and is the same again now. Reviewed long course of labor and that she seems to have an arrest of dilation. Reviewed options and patient would like to move forward with a . Pitocin discontinued. Will discontinue magnesium on the way back to OR. Will resume post-op. Consent reviewed and signed. OR crew, pediatrics made aware. Brielle Bennett MD
[2017-07-01] MEDS ORDERED: ceFAZolin 2 GM in Premix Bag 1 BAG IV ONE (22:30)
[2017-07-01] MEDS ORDERED: Oxytocin 10 Units/1 ML SDV ONE (22:43)
[2017-07-01] MEDS ORDERED: Ondansetron 4 MG/2 ML SDV ONE (22:43)
[2017-07-01] MEDS ORDERED: ceFAZolin 1 GM Vial ONE (22:43)
[2017-07-01] MEDS ORDERED: Morphine PF 10 MG/10 ML SDV ONE (22:47)
[2017-07-01] MEDS ORDERED: Lidocaine 2% with EPINEPHrine 1:200,000 20 ML SDV ONE (22:49)
[2017-07-01] MEDS ORDERED: Sodium Bicarbonate 8.4% 50 MEQ/50 ML SDV ONE (22:49)
[2017-07-01] MEDS ORDERED: Misoprostol 200 MCG Tab ONE (23:09)
[2017-07-01] MEDS ORDERED: Meperidine PF 50 MG/ML Syringe ONE (23:23)
[2017-07-01] MEDS ORDERED: Lactated Ringers 1,000 ML ONE ×2 (23:50)
[2017-07-01] MEDS ORDERED: ePHEDrine 50 MG/ML SDV ONE (23:50)
--- NOTE | 2017-07-02 00:09 | PCM.OPNOTE ---
- General Post-Op/Procedure Note Date of Surgery/Procedure: 07/01/17 Operative Procedure(s): Primary Low Transverse Findings: Baby girl with a weight of 7 lbs 8 oz and APGARS 8 & 9. Left sided hysterotomy extension, but otherwise normal appearance of the uterus, fallopian tubes, and ovaries. Pre Op Diagnosis: 39 weeks gestation. Severe preeclampsia. FTP in 1st stage - arrest of labor at 9 cm Post-Op Diagnosis: Same - baby in OP presentation Anesthesia Technique: Epidural Primary Surgeon: Brielle Bennett Secondary Surgeon: Juana Muniz Anesthesia Provider: Arnoldo Patton Pathology: Cord blood collected. Placenta discarded. Fluid Replacement, Intraop: 2,000 Output, Urine Amount: 100 EBL in mLs: 1,000 Complications: None Condition: Good Free Text/Narrative:: The risks, benefits, indications, potential complications, and alternatives were explained to the patient and informed consent obtained. After induction of anesthesia, the patient was placed in a supine position and then draped and prepped in the usual sterile manner. A Pfannenstiel incision was made and carried down through the subcutaneous tissue to the fascia. Fascial incision was made and extended transversely. The fascia was from the underlying rectus tissue superiorly and inferiorly. The peritoneum was identified and entered. Peritoneal incision was extended longitudinally. The utero-vesical peritoneal reflection was incised transversely and the bladder flap was bluntly freed from the lower uterine segment. A low transverse uterine incision was made sharply with a scalpel and extended bluntly in a cephalocaudad direction. A baby girl was delivered from a vertex presentation (LOP) with APGARS as above. After the umbilical cord was clamped and cut cord blood was obtained for evaluation. The placenta was removed intact and appeared normal. The uterus was exteriorized and cleared of clots. The uterine outline, tubes and ovaries appeared normal. There was a left sided extension of the hysterotomy measuring about 4 cm in length. The uterine incision was closed with running locked sutures of 0 Vicryl starting from the site of the extension. Hemostasis was obtained by a second imbricating layer of 0 vicryl suture and multiple figure of eight sutures of 0 monocryl. The uterus was then placed back into the abdomen. There was still some slight ooze from sites of suture entry on the uterus and so Zoltan-seal was placed across the hysterotomy. The infracolic gutters were cleared of blood clots. The fascia was then reapproximated with running sutures of 0 Vicryl. The sucutaneous tissue was irrigated with sterile warm normal saline, hemostasis obtained with cautery. A running 0 vicryl was used to close this layer as well. The skin was reapproximated with running Subcuticular 4-0 monocryl sutures. Instrument, sponge, and needle counts were correct prior the abdominal closure and at the conclusion of the case.
--- NOTE | 2017-07-02 00:17 | PCM.POSTAN ---
POST ANESTHESIA ASSESSMENT - MENTAL STATUS Mental Status: Alert, Oriented - VITAL SIGNS Pulse Rate: 86 SaO2: 100 Resp Rate: 20 Blood Pressure: 128/83 Temperature: 37.2 C - RESPIRATORY Respiratory Status: Respiratory Rate WNL, Airway Patent, O2 Saturation Stable, Supplemental Oxygen - CARDIOVASCULAR CV Status: Pulse Rate WNL, Blood Pressure Stable - GASTROINTESTINAL GI Status: No Symptoms - PAIN Pain Score: 0 - POST OP HYDRATION Hydration Status: Adequate & Stable
[2017-07-02] MEDS ORDERED: Ondansetron 4 MG/2 ML SDV IVPUSH PRN (00:22)
[2017-07-02] MEDS ORDERED: fentaNYL 100 MCG/2 ML SDV IVPUSH PRN (00:22)
[2017-07-02] MEDS ORDERED: diphenhydrAMINE 50 MG/ML SDV IVPUSH PRN (00:22)
[2017-07-02] MEDS ORDERED: Oxytocin 10 Units/1 ML SDV ONE (00:41)
[2017-07-02] MEDS: Sertraline 25 MG Tab PO SCH ×2 (00:42→21:39)
[2017-07-02] MEDS ORDERED: Meperidine PF 50 MG/ML Syringe IVPUSH SCH (00:45)
[2017-07-02] MEDS ORDERED: Calcium Gluconate 10% 1 GM/10 ML SDV IV PRN (01:25)
[2017-07-02] MEDS ORDERED: Docusate Sodium 100 MG Cap PO PRN (01:25)
[2017-07-02] MEDS ORDERED: Naloxone 0.4 MG/ML SDV IVPUSH PRN (01:25)
[2017-07-02] MEDS ORDERED: Lanolin 100% Cream 7 GM Tube TOP PRN (01:25)
[2017-07-02] MEDS ORDERED: Ondansetron 4 MG/2 ML SDV IV PRN (01:25)
[2017-07-02] MEDS: Lactated Ringers 1,000 ML IV SCH ×2 (01:34→14:21)
[2017-07-02] MEDS: Magnesium Sulfate/Water 40 GM/1,000 ML BAG IV SCH ×2 (01:34→14:51)
[2017-07-02] MEDS ORDERED: Ketorolac 30 MG/ML SDV IVPUSH ONE (08:23)
--- NOTE | 2017-07-02 08:38 | PCM.PNPP ---
- General Info Date of Service: 07/02/17 Functional Status: Reports: Pain Controlled, Tolerating Diet - Review of Systems General: Reports: No Symptoms Pulmonary: Reports: No Symptoms Cardiovascular: Reports: No Symptoms Gastrointestinal: Reports: Abdominal Pain Musculoskeletal: Reports: Other (Pain in "chest muscles") Neurological: Reports: No Symptoms Psychiatric: Reports: No Symptoms - Patient Data Vital Signs - Most Recent: Last Vital Signs Temp 37.0 C 07/02/17 08:09 Pulse 86 07/02/17 08:09 Resp 14 07/02/17 08:09 BP 128/74 07/02/17 08:01 Pulse Ox 96 07/02/17 08:09 Weight - Most Recent: 65.317 kg I&O - Last 24 Hours: Intake & Output 07/01/17 07/02/17 07/02/17 22:59 06:59 14:59 Intake Total 2409 2250 Output Total 650 600 Balance 1759 1650 Lab Results - Last 24 Hours: Laboratory Results - last 24 hr 07/01/17 07/01/17 Range/Units 12:00 12:00 WBC 18.44 H (3.98-10.04) K/mm3 RBC 3.90 L (3.98-5.22) M/mm3 Hgb 12.4 (11.2-15.7) gm/L Hct 35.9 (34.1-44.9) % MCV 92.1 (79.4-94.8) fl MCH 31.8 (25.6-32.2) pg MCHC 34.5 (32.2-35.5) g/dl RDW Std Deviation 41.2 (36.4-46.3) fL Plt Count 291 (182-369) K/mm3 MPV 9.8 (9.4-12.3) fl Neut % (Auto) 86.7 H (34.0-71.1) % Lymph % (Auto) 7.3 L (19.3-51.7) % Maury % (Auto) 5.5 (4.7-12.5) % Eos % (Auto) 0.1 L (0.7-5.8) Baso % (Auto) 0.1 (0.1-1.2) % Neut # (Auto) 16.00 H (1.56-6.13) K/mm3 Lymph # (Auto) 1.34 (1.18-3.74) K/mm3 Maury # (Auto) 1.02 H (0.24-0.36) K/mm3 Eos # (Auto) 0.01 L (0.04-0.36) K/mm3 Baso # (Auto) 0.02 (0.01-0.08) K/mm3 Manual Slide Review Abnormal smear BUN 6 L (7-18) mg/dL Creatinine 1.0 (0.55-1.02) mg/dL Est Cr Clr Drug Dosing 63.92 mL/min Estimated GFR (MDRD) > 60 (>60) mL/min Uric Acid 6.9 H (2.6-6.0) mg/dL AST 31 (15-37) U/L ALT 21 (14-59) U/L Lactate Dehydrogenase 161 (81-234) U/L Med Orders - Current: Current Medications Calcium Gluconate (Calcium Gluconate) 1 gm IV ASDIRECTED PRN PRN Reason: respiratory distress Diphenhydramine HCl (Benadryl) 25 mg IVPUSH Q6H PRN PRN Reason: Pruritis Docusate Sodium (Colace) 100 mg PO Q12H PRN PRN Reason: Constipation Emollient Ointment (Lansinoh Hpa) 0 gm TOP ASDIRECTED PRN PRN Reason: Sore Nipples Lactated Ringer's (Ringers, Lactated) 1,000 mls @ 75 mls/hr IV ASDIRECTED [facility] Last Admin: 07/02/17 01:34 Dose: 75 mls/hr Magnesium Sulfate (Magnesium Sulfate 40 Gm In Water 1000 Ml) 40 gm in 1,000 mls @ [facility] Last Admin: 07/02/17 01:34 Dose: 50 mls/hr Meperidine HCl (Demerol) 12.5 mg IVPUSH ONETIME [facility] Last Admin: 07/02/17 00:48 Dose: 12.5 mg Naloxone HCl (Narcan) 0.1 mg IVPUSH SEECOMMENT PRN PRN Reason: Respiratory Depression Ondansetron HCl (Zofran) 4 mg IVPUSH ONETIME PRN PRN Reason: Nausea/Vomiting Ondansetron HCl (Zofran) 4 mg IV Q8H PRN PRN Reason: Nausea/Vomiting Oxycodone/Acetaminophen (Percocet 325-5 Mg) 2 tab PO Q4H PRN PRN Reason: Pain (moderate 4-6) Sertraline HCl (Zoloft) 25 mg PO BEDTIME [facility] Last Admin: 07/02/17 00:42 Dose: Not Given Discontinued Medications Acetaminophen (Tylenol) 650 mg PO Q6H PRN PRN Reason: Headache Last Admin: 07/01/17 13:03 Dose: 650 mg Cefazolin Sodium (Ancef) Confirm Administered Dose 2 gm .ROUTE .STK-MED ONE Stop: 07/01/17 22:44 Citric Acid/Sodium Citrate (Bicitra Solution) 30 ml PO ONETIME ONE Stop: 07/01/17 22:20 Last Admin: 07/01/17 22:37 Dose: 30 ml Diphenhydramine HCl (Benadryl) 25 mg IVPUSH Q6H PRN PRN Reason: pruritis Diphtheria/Tetanus/Acell Pertussis (Adacel) 0.5 ml IM .ONCE ONE Stop: 06/30/17 22:40 Ephedrine Sulfate (Ephedrine Sulfate) 5 mg IVPUSH ASDIRECTED PRN PRN Reason: Hypotension Ephedrine Sulfate (Ephedrine Sulfate) Confirm Administered Dose 50 mg .ROUTE .STK-MED ONE Stop: 07/01/17 23:51 Fentanyl (Sublimaze) 100 mcg EPIDUR Q3H PRN PRN Reason: Pain Last Admin: 07/01/17 02:46 Dose: 100 mcg Fentanyl (Sublimaze) 50 mcg IVPUSH Q5M PRN PRN Reason: Pain Stop: 07/02/17 00:38 Fentanyl/Bupivacaine HCl (Fentanyl/Bupivacaine/Ns 2 Mcg-0.125% 100 Ml) 100 ml EPIDUR ASDIRECTED [facility] Last Admin: 07/01/17 18:05 Dose: 100 ml Magnesium Sulfate 2 gm/ Premix 50 mls @ 300 mls/hr IV ONETIME ONE Stop: 06/30/17 20:29 Last Admin: 06/30/17 20:33 Dose: 300 mls/hr Magnesium Sulfate 4 gm/ Premix 100 mls @ 300 mls/hr IV ONETIME ONE Stop: 06/30/17 20:39 Last Admin: 06/30/17 20:43 Dose: 300 mls/hr Lactated Ringer's (Ringers, Lactated) 1,000 mls @ 75 mls/hr IV ASDIRECTED CELI Last Admin: 07/01/17 08:12 Dose: 75 mls/hr Magnesium Sulfate (Magnesium Sulfate 4 Gm In Water 100 Ml) Confirm Administered Dose 100 mls @ as directed .ROUTE .STK-MED ONE Stop: 06/30/17 20:21 Last Admin: 06/30/17 21:05 Dose: Not Given Magnesium Sulfate (Magnesium Sulfate 2 Gm In Water 50 Ml) Confirm Administered Dose 50 mls @ as directed .ROUTE .STK-MED ONE Stop: 06/30/17 20:21 Last Admin: 06/30/17 21:05 Dose: Not Given Magnesium Sulfate (Magnesium Sulfate 40 Gm In Water 1000 Ml) 40 gm in 1,000 mls @ 50 mls/hr IV ASDIRECTED CELI Last Infusion: 07/01/17 22:39 Dose: 0 mls/hr Oxytocin/Lactated Ringer's (Pitocin In Lr 10 Units/1,000 Ml) 10 unit in 1,000 mls @ 500 mls/hr IV .CONTINUOUS CELI Oxytocin/Lactated Ringer's (Pitocin In Lr 10 Units/1,000 Ml) 10 unit in 1,000 mls @ 12 mls/hr IV TITRATE CELI; 2 MUNITS/MIN PRN Reason: Protocol Last Titration: 07/01/17 22:17 Dose: 0 munits/min, 0 mls/hr Cefazolin Sodium/Dextrose 2 gm (/ Premix) 50 mls @ 100 mls/hr IV ONETIME ONE Stop: 07/01/17 22:59 Last Admin: 07/02/17 00:42 Dose: Not Given Lactated Ringer's (Ringers, Lactated) Confirm Administered Dose 1,000 mls @ as directed .ROUTE .STK-MED ONE Stop: 07/01/17 23:51 Lactated Ringer's (Ringers, Lactated) Confirm Administered Dose 1,000 mls @ as directed .ROUTE .STK-MED ONE Stop: 07/01/17 23:51 Ketorolac Tromethamine (Toradol) 30 mg IVPUSH ONETIME ONE Stop: 07/02/17 08:24 Labetalol HCl (Normodyne) 20 mg IVPUSH ONETIME ONE PRN Reason: Protocol Stop: 06/30/17 19:54 Last Admin: 06/30/17 20:00 Dose: 20 mg Labetalol HCl (Normodyne) Confirm Administered Dose 100 mg .ROUTE .STK-MED ONE Stop: 06/30/17 19:54 Last Admin: 06/30/17 21:05 Dose: Not Given Labetalol HCl (Normodyne) 40 mg IVPUSH ONETIME ONE PRN Reason: Protocol Stop: 06/30/17 20:19 Last Admin: 06/30/17 20:20 Dose: 40 mg Labetalol HCl (Normodyne) 200 mg PO ONETIME ONE Stop: 07/01/17 12:38 Last Admin: 07/01/17 12:45 Dose: 200 mg Lidocaine/Epinephrine (Xylocaine-Mpf 2%-Epi 1:200,000) Confirm Administered Dose 20 ml .ROUTE .STK-MED ONE Stop: 07/01/17 22:50 Meperidine HCl (Demerol) Confirm Administered Dose 50 mg .ROUTE .STK-MED ONE Stop: 07/01/17 23:24 Metoclopramide HCl (Reglan) 10 mg IVPUSH ONETIME ONE Stop: 07/01/17 22:20 Last Admin: 07/01/17 22:37 Dose: 10 mg Misoprostol (Cytotec) Confirm Administered Dose 25 mcg .ROUTE .STK-MED ONE Stop: 06/30/17 20:39 Last Admin: 07/01/17 01:32 Dose: Not Given Misoprostol (Cytotec) 25 mcg VAG Q4H PRN PRN Reason: cervical ripening Stop: 07/01/17 04:54 Misoprostol (Cytotec) Confirm Administered Dose 25 mcg .ROUTE .STK-MED ONE Stop: 07/01/17 01:01 Last Admin: 07/01/17 01:32 Dose: Not Given Misoprostol (Cytotec) 25 mcg VAG Q4H PRN PRN Reason: cervical ripening Stop: 07/01/17 04:54 Last Admin: 07/01/17 05:03 Dose: 25 mcg Misoprostol (Cytotec) Confirm Administered Dose 600 mcg .ROUTE .STK-MED ONE Stop: 07/01/17 23:10 Last Admin: 07/01/17 23:20 Dose: 600 mcg Morphine Sulfate (Duramorph Pf) Confirm Administered Dose 10 mg .ROUTE .STK-MED ONE Stop: 07/01/17 22:48 Ondansetron HCl (Zofran) 4 mg IVPUSH Q4H PRN PRN Reason: Nausea/Vomiting Last Admin: 07/01/17 06:36 Dose: 4 mg Ondansetron HCl (Zofran) Confirm Administered Dose 4 mg .ROUTE .STK-MED ONE Stop: 07/01/17 22:44 Oxytocin (Pitocin) Confirm Administered Dose 10 unit .ROUTE .STK-MED ONE Stop: 07/01/17 22:44 Oxytocin (Pitocin) Confirm Administered Dose 10 unit .ROUTE .STK-MED ONE Stop: 07/02/17 00:42 Promethazine HCl (Phenergan) 12.5 mg IM ONETIME ONE Stop: 07/01/17 08:51 Last Admin: 07/01/17 09:19 Dose: 12.5 mg Sertraline HCl (Zoloft) 25 mg PO DAILY CELI Sodium Bicarbonate (Sodium Bicarbonate 8.4%) Confirm Administered Dose 50 meq .ROUTE .STK-MED ONE Stop: 07/01/17 22:50 Sodium Chloride (Saline Flush) 10 ml FLUSH ASDIRECTED PRN PRN Reason: Keep Vein Open Zolpidem Tartrate (Ambien) 5 mg PO BEDTIME PRN PRN Reason: Insomnia Last Admin: 06/30/17 23:00 Dose: 5 mg - Infant Interaction Disposition, : in Room with Family Infant Interaction: Holding Infant Feeding: Bottle Fed Infant Support Person: , Other (see below) - Recovery Exam Fundal Tone: Firm Fundal Level: At Umbilicus Fundal Placement: Midline Lochia Amount: Small, Moderate Lochia Color: Rubra/Red Perineum Description: Intact, Minimal Bruising/Swelling Episiotomy/Laceration: None Bladder Status: Indwelling Catheter in Place Urinary Elimination: Indwelling Catheter - Exam General: Alert, Oriented, Cooperative Lungs: Clear to Auscultation, Normal Respiratory Effort Cardiovascular: Regular Rate, Regular Rhythm GI/Abdominal Exam: Soft, Tender (appropriate post op) Extremities: Normal Inspection Skin: Warm, Dry, Intact Wound/Incisions: Healing Well, Dressing Dry and Intact Neurological: Reflexes Equal Bilateral (Brisk - +3) - Problem List & Annotations (1) 39 weeks gestation of SNOMED Code(s): 38524696 Code(s): Z3A.39 - 39 WEEKS GESTATION OF Status: Acute Current Visit: Yes (2) Preeclampsia SNOMED Code(s): 806418591 Code(s): O14.90 - UNSPECIFIED PRE-ECLAMPSIA, UNSPECIFIED TRIMESTER Status: Acute Current Visit: Yes Qualifiers: Trimester: third trimester Qualified Code(s): O14.93 - Unspecified pre- eclampsia, third trimester (3) Failure to progress in first stage of labor SNOMED Code(s): 550697345 Code(s): EIN9430 - Status: Acute Current Visit: Yes (4) S/P primary low transverse SNOMED Code(s): 010724418, 090850072, 267781738, 899893192 Code(s): Z98.891 - HISTORY OF UTERINE SCAR FROM PREVIOUS SURGERY Status: Acute Current Visit: Yes - Problem List Review Problem List Initiated/Reviewed/Updated: Yes - My Orders Last 24 Hours: My Active Orders 07/02/17 01:25 Antiembolic Devices [RC] PER UNIT ROUTINE Bedrest [RC] ASDIRECTED Communication Order [RC] ASDIRECTED Notify Provider Intake and Out [RC] ASDIRECTED Notify Provider Status Change [RC] ASDIRECTED Notify Provider Vital Signs [RC] ASDIRECTED Notify Provider [RC] ASDIRECTED Oxygen Therapy [RC] PRN RT Incentive Spirometry [RC] Q2HWA Acetaminophen/oxyCODONE [Percocet 325-5 MG] 2 tab PO Q4H PRN Calcium Gluconate 1 gm IV ASDIRECTED PRN Docusate Sodium [Colace] 100 mg PO Q12H PRN Lactated Ringers [Ringers, Lactated] 1,000 ml IV ASDIRECTED Lanolin [Lansinoh HPA] See Dose Instructions TOP ASDIRECTED PRN Magnesium Sulfate/Water [Magnesium Sulfate 40 GM in Water 1000 ML] 40 gm in 1, 000 ml IV ASDIRECTED Naloxone [Narcan] 0.1 mg IVPUSH SEECOMMENT PRN Ondansetron [Zofran] 4 mg IV Q8H PRN Assess Lochia [WOMSER] Per Unit Routine Assess Uterine Involution [WOMSER] Per Unit Routine Deep Tendon Reflexes [WOMSER] ASDIRECTED Heat Therapy [OM.PC] Per Unit Routine Sequential Compression Device [OM.PC] Per Unit Routine 07/02/17 16:10 CBC W/O DIFF,HEMOGRAM [HEME] Timed 07/02/17 Breakfast Regular Diet [DIET] - Assessment Assessment:: 22 y/o G1 now P1001 POD#1 from PLTCS at 39 6/7 wks after IOL for severe pre- Eclampsia and FTP in 1st stage of labor - Plan Plan:: S/p PLTCS with severe pre-eclampsia * Continue magnesium for 24 hours post delivery * Strict I&O, BP q1hr, reflex checks * Can do general diet * Had not ordered Toradol previously, but patient with muscle pain and so will do a one time dose * CBC at 1600 today * Discharge home in 2 days Brielle Bennett MD
--- NOTE | 2017-07-02 08:56 | PCM48HPAN ---
Post Anesthesia Note - EVALUATION WITHIN 48HRS OF ANESTHETIC Vital Signs in Normal Range: Yes Patient Participated in Evaluation: Yes Respiratory Function Stable: Yes Airway Patent: Yes Cardiovascular Function Stable: Yes Hydration Status Stable: Yes Pain Control Satisfactory: Yes Nausea and Vomiting Control Satisfactory: Yes Mental Status Recovered: Yes
[2017-07-02] MEDS ORDERED: Sertraline 25 MG Tab PO SCH (09:00)
[2017-07-02] MEDS ORDERED: Promethazine 25 MG Tab PO PRN (15:00)
[2017-07-02] MEDS: Ketorolac 30 MG/ML SDV IVPUSH SCH ×2 (15:33→21:39)
[2017-07-02] MEDS ORDERED: Lactated Ringers 1,000 ML IV SCH (16:45)
[2017-07-03] MEDS: Acetaminophen/oxyCODONE 325-5 MG Tab PO PRN ×4 (04:21→22:25)
--- NOTE | 2017-07-03 07:47 | PCM.PNPP ---
- General Info Date of Service: 07/03/17 Functional Status: Reports: Pain Controlled, Tolerating Diet, Ambulating - Review of Systems General: Reports: No Symptoms Pulmonary: Reports: No Symptoms Cardiovascular: Reports: No Symptoms Gastrointestinal: Reports: Abdominal Pain Musculoskeletal: Reports: No Symptoms Neurological: Reports: No Symptoms - Patient Data Vital Signs - Most Recent: Last Vital Signs Temp 36.9 C 07/03/17 04:00 Pulse 72 07/03/17 04:00 Resp 14 07/03/17 04:00 BP 133/82 07/03/17 04:00 Pulse Ox 100 07/03/17 04:00 Weight - Most Recent: 65.317 kg I&O - Last 24 Hours: Intake & Output 07/02/17 07/03/17 07/03/17 22:59 06:59 14:59 Intake Total 600 Output Total 1625 700 Balance -1025 -700 Lab Results - Last 24 Hours: Laboratory Results - last 24 hr 07/02/17 Range/Units 16:10 WBC 22.28 H (3.98-10.04) K/mm3 RBC 2.62 L (3.98-5.22) M/mm3 Hgb 8.3 L (11.2-15.7) gm/L Hct 24.5 L (34.1-44.9) % MCV 93.5 (79.4-94.8) fl MCH 31.7 (25.6-32.2) pg MCHC 33.9 (32.2-35.5) g/dl RDW Std Deviation 40.9 (36.4-46.3) fL Plt Count 226 (182-369) K/mm3 MPV 8.8 L (9.4-12.3) fl Med Orders - Current: Current Medications Diphenhydramine HCl (Benadryl) 25 mg IVPUSH Q6H PRN PRN Reason: Pruritis Docusate Sodium (Colace) 100 mg PO Q12H PRN PRN Reason: Constipation Emollient Ointment (Lansinoh Hpa) 0 gm TOP ASDIRECTED PRN PRN Reason: Sore Nipples Naloxone HCl (Narcan) 0.1 mg IVPUSH SEECOMMENT PRN PRN Reason: Respiratory Depression Ondansetron HCl (Zofran) 4 mg IV Q8H PRN PRN Reason: Nausea/Vomiting Oxycodone/Acetaminophen (Percocet 325-5 Mg) 2 tab PO Q4H PRN PRN Reason: Pain (moderate 4-6) Last Admin: 07/03/17 04:21 Dose: 1 tab Promethazine HCl (Phenergan) 25 mg PO Q6H PRN PRN Reason: Nausea/Vomiting Last Admin: 07/02/17 15:05 Dose: 25 mg Sertraline HCl (Zoloft) 25 mg PO BEDTIME CELI Last Admin: 07/02/17 21:39 Dose: 25 mg Discontinued Medications Acetaminophen (Tylenol) 650 mg PO Q6H PRN PRN Reason: Headache Last Admin: 07/01/17 13:03 Dose: 650 mg Calcium Gluconate (Calcium Gluconate) 1 gm IV ASDIRECTED PRN PRN Reason: respiratory distress Cefazolin Sodium (Ancef) Confirm Administered Dose 2 gm .ROUTE .STK-MED ONE Stop: 07/01/17 22:44 Citric Acid/Sodium Citrate (Bicitra Solution) 30 ml PO ONETIME ONE Stop: 07/01/17 22:20 Last Admin: 07/01/17 22:37 Dose: 30 ml Diphenhydramine HCl (Benadryl) 25 mg IVPUSH Q6H PRN PRN Reason: pruritis Diphtheria/Tetanus/Acell Pertussis (Adacel) 0.5 ml IM .ONCE ONE Stop: 06/30/17 22:40 Ephedrine Sulfate (Ephedrine Sulfate) 5 mg IVPUSH ASDIRECTED PRN PRN Reason: Hypotension Ephedrine Sulfate (Ephedrine Sulfate) Confirm Administered Dose 50 mg .ROUTE .STK-MED ONE Stop: 07/01/17 23:51 Fentanyl (Sublimaze) 100 mcg EPIDUR Q3H PRN PRN Reason: Pain Last Admin: 07/01/17 02:46 Dose: 100 mcg Fentanyl (Sublimaze) 50 mcg IVPUSH Q5M PRN PRN Reason: Pain Stop: 07/02/17 00:38 Fentanyl/Bupivacaine HCl (Fentanyl/Bupivacaine/Ns 2 Mcg-0.125% 100 Ml) 100 ml EPIDUR ASDIRECTED CELI Last Admin: 07/01/17 18:05 Dose: 100 ml Magnesium Sulfate 2 gm/ Premix 50 mls @ 300 mls/hr IV ONETIME ONE Stop: 06/30/17 20:29 Last Admin: 06/30/17 20:33 Dose: 300 mls/hr Magnesium Sulfate 4 gm/ Premix 100 mls @ 300 mls/hr IV ONETIME ONE Stop: 06/30/17 20:39 Last Admin: 06/30/17 20:43 Dose: 300 mls/hr Lactated Ringer's (Ringers, Lactated) 1,000 mls @ 75 mls/hr IV ASDIRECTED [facility] Last Admin: 07/01/17 08:12 Dose: 75 mls/hr Magnesium Sulfate (Magnesium Sulfate 4 Gm In Water 100 Ml) Confirm Administered Dose 100 mls @ as directed .ROUTE .STK-[facility] ONE Stop: 06/30/17 20:21 Last Admin: 06/30/17 21:05 Dose: Not Given Magnesium Sulfate (Magnesium Sulfate 2 Gm In Water 50 Ml) Confirm Administered Dose 50 mls @ as directed .ROUTE .STK-[facility] ONE Stop: 06/30/17 20:21 Last Admin: 06/30/17 21:05 Dose: Not Given Magnesium Sulfate (Magnesium Sulfate 40 Gm In Water 1000 Ml) 40 gm in 1,000 mls @ 50 mls/hr IV ASDIRECTED [facility] Last Infusion: 07/01/17 22:39 Dose: 0 mls/hr Oxytocin/Lactated Ringer's (Pitocin In Lr 10 Units/1,000 Ml) 10 unit in 1,000 mls @ 500 mls/hr IV .CONTINUOUS CELI Oxytocin/Lactated Ringer's (Pitocin In Lr 10 Units/1,000 Ml) 10 unit in 1,000 mls @ 12 mls/hr IV TITRATE CELI; 2 MUNITS/MIN PRN Reason: Protocol Last Titration: 07/01/17 22:17 Dose: 0 munits/min, 0 mls/hr Cefazolin Sodium/Dextrose 2 gm (/ Premix) 50 mls @ 100 mls/hr IV ONETIME ONE Stop: 07/01/17 22:59 Last Admin: 07/02/17 00:42 Dose: Not Given Lactated Ringer's (Ringers, Lactated) Confirm Administered Dose 1,000 mls @ as directed .ROUTE .STK-[facility] ONE Stop: 07/01/17 23:51 Lactated Ringer's (Ringers, Lactated) Confirm Administered Dose 1,000 mls @ as directed .ROUTE .[facility] ONE Stop: 07/01/17 23:51 Lactated Ringer's (Ringers, Lactated) 1,000 mls @ 75 mls/hr IV ASDIRECTED CELI Last Infusion: 07/02/17 14:51 Dose: 50 mls/hr Magnesium Sulfate (Magnesium Sulfate 40 Gm In Water 1000 Ml) 40 gm in 1,000 mls @ 50 mls/hr IV ASDIRECTED CELI Last Admin: 07/02/17 14:51 Dose: 50 mls/hr Lactated Ringer's (Ringers, Lactated) 1,000 mls @ 50 mls/hr IV ASDIRECTED CELI Ketorolac Tromethamine (Toradol) 30 mg IVPUSH ONETIME ONE Stop: 07/02/17 08:24 Last Admin: 07/02/17 08:52 Dose: 30 mg Ketorolac Tromethamine (Toradol) 30 mg IVPUSH Q6H CELI Stop: 07/02/17 21:16 Last Admin: 07/02/17 21:39 Dose: 30 mg Labetalol HCl (Normodyne) 20 mg IVPUSH ONETIME ONE PRN Reason: Protocol Stop: 06/30/17 19:54 Last Admin: 06/30/17 20:00 Dose: 20 mg Labetalol HCl (Normodyne) Confirm Administered Dose 100 mg .ROUTE .STK-MED ONE Stop: 06/30/17 19:54 Last Admin: 06/30/17 21:05 Dose: Not Given Labetalol HCl (Normodyne) 40 mg IVPUSH ONETIME ONE PRN Reason: Protocol Stop: 06/30/17 20:19 Last Admin: 06/30/17 20:20 Dose: 40 mg Labetalol HCl (Normodyne) 200 mg PO ONETIME ONE Stop: 07/01/17 12:38 Last Admin: 07/01/17 12:45 Dose: 200 mg Lidocaine/Epinephrine (Xylocaine-Mpf 2%-Epi 1:200,000) Confirm Administered Dose 20 ml .ROUTE .STK-MED ONE Stop: 07/01/17 22:50 Meperidine HCl (Demerol) Confirm Administered Dose 50 mg .ROUTE .STK-MED ONE Stop: 07/01/17 23:24 Meperidine HCl (Demerol) 12.5 mg IVPUSH ONETIME CELI Last Admin: 07/02/17 00:48 Dose: 12.5 mg Metoclopramide HCl (Reglan) 10 mg IVPUSH ONETIME ONE Stop: 07/01/17 22:20 Last Admin: 07/01/17 22:37 Dose: 10 mg Misoprostol (Cytotec) Confirm Administered Dose 25 mcg .ROUTE .STK-MED ONE Stop: 06/30/17 20:39 Last Admin: 07/01/17 01:32 Dose: Not Given Misoprostol (Cytotec) 25 mcg VAG Q4H PRN PRN Reason: cervical ripening Stop: 07/01/17 04:54 Misoprostol (Cytotec) Confirm Administered Dose 25 mcg .ROUTE .STK-MED ONE Stop: 07/01/17 01:01 Last Admin: 07/01/17 01:32 Dose: Not Given Misoprostol (Cytotec) 25 mcg VAG Q4H PRN PRN Reason: cervical ripening Stop: 07/01/17 04:54 Last Admin: 07/01/17 05:03 Dose: 25 mcg Misoprostol (Cytotec) Confirm Administered Dose 600 mcg .ROUTE .STK-MED ONE Stop: 07/01/17 23:10 Last Admin: 07/01/17 23:20 Dose: 600 mcg Morphine Sulfate (Duramorph Pf) Confirm Administered Dose 10 mg .ROUTE .STK-MED ONE Stop: 07/01/17 22:48 Ondansetron HCl (Zofran) 4 mg IVPUSH Q4H PRN PRN Reason: Nausea/Vomiting Last Admin: 07/01/17 06:36 Dose: 4 mg Ondansetron HCl (Zofran) Confirm Administered Dose 4 mg .ROUTE .STK-MED ONE Stop: 07/01/17 22:44 Ondansetron HCl (Zofran) 4 mg IVPUSH ONETIME PRN PRN Reason: Nausea/Vomiting Last Admin: 07/02/17 09:58 Dose: 4 mg Oxytocin (Pitocin) Confirm Administered Dose 10 unit .ROUTE .STK-MED ONE Stop: 07/01/17 22:44 Oxytocin (Pitocin) Confirm Administered Dose 10 unit .ROUTE .STK-MED ONE Stop: 07/02/17 00:42 Promethazine HCl (Phenergan) 12.5 mg IM ONETIME ONE Stop: 07/01/17 08:51 Last Admin: 07/01/17 09:19 Dose: 12.5 mg Sertraline HCl (Zoloft) 25 mg PO DAILY CELI Sodium Bicarbonate (Sodium Bicarbonate 8.4%) Confirm Administered Dose 50 meq .ROUTE .STK-MED ONE Stop: 07/01/17 22:50 Sodium Chloride (Saline Flush) 10 ml FLUSH ASDIRECTED PRN PRN Reason: Keep Vein Open Zolpidem Tartrate (Ambien) 5 mg PO BEDTIME PRN PRN Reason: Insomnia Last Admin: 06/30/17 23:00 Dose: 5 mg - Interaction Infant Disposition, : [place] in Room with Family Interaction: Holding Infant Infant Feeding: Bottle Fed Infant Support Person: , Other (see below) - Recovery Exam Fundal Tone: Firm Fundal Level: 1 Fingerbreadths Above Umbilicus Fundal Placement: Midline Lochia Amount: Scant, Small Lochia Color: Rubra/Red Perineum Description: Intact, Minimal Bruising/Swelling Episiotomy/Laceration: None Urinary Elimination: Not Voiding - Exam General: Alert, Oriented, Cooperative Lungs: Clear to Auscultation, Normal Respiratory Effort Cardiovascular: Regular Rate, Regular Rhythm GI/Abdominal Exam: Soft, Tender (appropriate ) Extremities: Normal Inspection Skin: Warm, Dry, Intact Wound/Incisions: Healing Well, No Drainage Neurological: Reflexes Equal Bilateral (+3) - Problem List & Annotations (1) 39 weeks gestation of SNOMED Code(s): 44218091 Code(s): Z3A.39 - 39 WEEKS GESTATION OF Status: Acute Current Visit: Yes (2) Preeclampsia SNOMED Code(s): 258203751 Code(s): O14.90 - UNSPECIFIED PRE-ECLAMPSIA, UNSPECIFIED TRIMESTER Status: Acute Current Visit: Yes Qualifiers: Trimester: third trimester Qualified Code(s): O14.93 - Unspecified pre- eclampsia, third trimester (3) Failure to progress in first stage of labor SNOMED Code(s): 487408226 Code(s): YED7702 - Status: Acute Current Visit: Yes (4) S/P primary low transverse SNOMED Code(s): 578787635, 287743827, 235319034, 853588598 Code(s): Z98.891 - HISTORY OF UTERINE SCAR FROM PREVIOUS SURGERY Status: Acute Current Visit: Yes - Problem List Review Problem List Initiated/Reviewed/Updated: Yes - My Orders Last 24 Hours: My Active Orders 07/02/17 15:00 Promethazine [Phenergan] 25 mg PO Q6H PRN 07/02/17 19:14 Vital Signs [RC] Q4HR 07/02/17 19:17 Urinary Catheter Removal [RC] Per Unit Routine 07/02/17 Breakfast Regular Diet [DIET] - Assessment Assessment:: 22 y/o G1 now P1001 POD#2 from PLTCS at 39 6/7 wks after IOL for severe pre- Eclampsia and FTP in 1st stage of labor - Plan Plan:: S/p PLTCS with severe pre-eclampsia * S/p Magnesium for 24 hours * VS q 4 * Discharge home tomorrow pending clinical course Brielle Bennett MD
[2017-07-03] MEDS: Ibuprofen 600 MG Tab PO PRN ×2 (10:28→19:06)
[2017-07-03] MEDS: Simethicone 80 MG Tab.Chew PO PRN ×2 (12:23→19:06)
[2017-07-03] MEDS: Sertraline 25 MG Tab PO SCH (22:00)
[2017-07-04] MEDS: Ibuprofen 600 MG Tab PO PRN ×2 (01:18→08:32)
[2017-07-04] MEDS: Acetaminophen/oxyCODONE 325-5 MG Tab PO PRN ×2 (04:11→11:38)
--- NOTE | 2017-07-04 07:38 | PCM.DCSUM1 ---
Discharge Summary - Discharge Data Discharge Date: 07/04/17 Discharge Disposition: Home, Self-Care 01 Condition: Good - Discharge Diagnosis/Problem(s) (1) 39 weeks gestation of SNOMED Code(s): 38988652 ICD Code: Z3A.39 - 39 WEEKS GESTATION OF Status: Acute Current Visit: Yes (2) Preeclampsia SNOMED Code(s): 471706612 ICD Code: O14.90 - UNSPECIFIED PRE-ECLAMPSIA, UNSPECIFIED TRIMESTER Status : Acute Current Visit: Yes Qualifiers: Trimester: third trimester Qualified Code(s): O14.93 - Unspecified pre- eclampsia, third trimester (3) Failure to progress in first stage of labor SNOMED Code(s): 233667195 ICD Code: [id number] - Status: Acute Current Visit: Yes (4) S/P primary low transverse SNOMED Code(s): 613819780, 433367062, 276249061, 739883266 ICD Code: Z98.891 - HISTORY OF UTERINE SCAR FROM PREVIOUS SURGERY Status: Acute Current Visit: Yes - Patient Summary/Data Operative Procedure(s) Performed: Primary Low Transverse Complications: None Consults: None Recommended Follow-up Testing/Procedures: Follow up in [address] Villa for BP check Hospital Course: 22 y/o at 39 5/7 wks who presented for concerns of labor. Was not in labor , but found to have multiple severe range BP's and diagnosis of severe pre- eclampsia. She was treated with 2 doses of IV labetalol and IV magnesium with her pressures responding well. An induction was then started with cytotec. She did have SROM with this and then was transitioned to pitocin. She progressed to about 9 cm, but then did not progress any further. Decision made to proceed with PLTCS. Baby found to be in OP presentation. Surgery notable for a left sided extension, but otherwise uncomplicated. she was maintained on magnesium for 24 hours. During this and afterwards her BP's remained normal to mild range. Did not require additional anti-hypertensives. She was then discharged to home on POD#3 - Patient Instructions Diet: Regular Diet as Tolerated Activity: No Lifting Over 10 Pounds Activity, Other: Pelvic Rest for 6 weeks Driving: Do Not Drive (While taking narcotics ) Showering/Bathing: May Shower, No Tub Bathing/Swimming Wound/Incision Care: Keep Operative Site/Wound Site Clean and Dry Notify Provider of: Fever, Increased Pain, Swelling and Redness, Drainage, Nausea and/or Vomiting - Discharge Plan Prescriptions/Med Rec: Acetaminophen/oxyCODONE [Percocet 325-5 MG] 2 tab PO Q4H PRN #25 tablet PRN Reason: Pain Sertraline [Zoloft] 25 mg PO DAILY #90 tablet Home Medications: Home Meds Pnv No.122/Iron/Folic Acid [ Multi Tablet] 1 each PO DAILY 06/30/17 [ History] Acetaminophen/oxyCODONE [Percocet 325-5 MG] 2 tab PO Q4H PRN #25 tablet [Rx] Docusate Sodium [Colace] 100 mg PO Q12H PRN #0 cap 07/02/17 [Rx] Sertraline [Zoloft] 25 mg PO DAILY #90 tablet 07/02/17 [Rx] Referrals: Rayo Villa MD [Physician] - (1-2 weeks for BP check ) - Discharge Summary/Plan Comment DC Time >30 min.: No - Patient Data Vitals - Most Recent: Last Vital Signs Temp 36.5 C 07/04/17 04:00 Pulse 82 07/04/17 04:00 Resp 14 07/04/17 04:00 BP 135/84 07/04/17 04:00 Pulse Ox 100 07/04/17 04:00 Weight - Most Recent: 65.317 kg I&O - Last 24 hours: Intake & Output 07/03/17 07/04/17 07/04/17 22:59 06:59 14:59 Intake Total 0 Balance 0 Med Orders - Current: Current Medications Diphenhydramine HCl (Benadryl) 25 mg IVPUSH Q6H PRN PRN Reason: Pruritis Docusate Sodium (Colace) 100 mg PO Q12H PRN PRN Reason: Constipation Last Admin: 07/03/17 12:23 Dose: 100 mg Emollient Ointment (Lansinoh Hpa) 0 gm TOP ASDIRECTED PRN PRN Reason: Sore Nipples Ibuprofen (Motrin) 600 mg PO Q6H PRN PRN Reason: Pain Last Admin: 07/04/17 01:18 Dose: 600 mg Naloxone HCl (Narcan) 0.1 mg IVPUSH SEECOMMENT PRN PRN Reason: Respiratory Depression Ondansetron HCl (Zofran) 4 mg IV Q8H PRN PRN Reason: Nausea/Vomiting Oxycodone/Acetaminophen (Percocet 325-5 Mg) 2 tab PO Q4H PRN PRN Reason: Pain (moderate 4-6) Last Admin: 07/04/17 04:11 Dose: 1 tab Promethazine HCl (Phenergan) 25 mg PO Q6H PRN PRN Reason: Nausea/Vomiting Last Admin: 07/02/17 15:05 Dose: 25 mg Sertraline HCl (Zoloft) 25 mg PO BEDTIME CELI Last Admin: 07/03/17 22:00 Dose: 25 mg Simethicone (Simethicone) 80 mg PO Q6H PRN PRN Reason: Gas Last Admin: 07/03/17 19:06 Dose: 80 mg Discontinued Medications Acetaminophen (Tylenol) 650 mg PO Q6H PRN PRN Reason: Headache Last Admin: 07/01/17 13:03 Dose: 650 mg Calcium Gluconate (Calcium Gluconate) 1 gm IV ASDIRECTED PRN PRN Reason: respiratory distress Cefazolin Sodium (Ancef) Confirm Administered Dose 2 gm .ROUTE .STK-MED ONE Stop: 07/01/17 22:44 Citric Acid/Sodium Citrate (Bicitra Solution) 30 ml PO ONETIME ONE Stop: 07/01/17 22:20 Last Admin: 07/01/17 22:37 Dose: 30 ml Diphenhydramine HCl (Benadryl) 25 mg IVPUSH Q6H PRN PRN Reason: pruritis Diphtheria/Tetanus/Acell Pertussis (Adacel) 0.5 ml IM .ONCE ONE Stop: 06/30/17 22:40 Ephedrine Sulfate (Ephedrine Sulfate) 5 mg IVPUSH ASDIRECTED PRN PRN Reason: Hypotension Ephedrine Sulfate (Ephedrine Sulfate) Confirm Administered Dose 50 mg .ROUTE .STK-MED ONE Stop: 07/01/17 23:51 Fentanyl (Sublimaze) 100 mcg EPIDUR Q3H PRN PRN Reason: Pain Last Admin: 07/01/17 02:46 Dose: 100 mcg Fentanyl (Sublimaze) 50 mcg IVPUSH Q5M PRN PRN Reason: Pain Stop: 07/02/17 00:38 Fentanyl/Bupivacaine HCl (Fentanyl/Bupivacaine/Ns 2 Mcg-0.125% 100 Ml) 100 ml EPIDUR ASDIRECTED [facility] Last Admin: 07/01/17 18:05 Dose: 100 ml Magnesium Sulfate 2 gm/ Premix 50 mls @ 300 mls/hr IV ONETIME ONE Stop: 06/30/17 20:29 Last Admin: 06/30/17 20:33 Dose: 300 mls/hr Magnesium Sulfate 4 gm/ Premix 100 mls @ 300 mls/hr IV ONETIME ONE Stop: 06/30/17 20:39 Last Admin: 06/30/17 20:43 Dose: 300 mls/hr Lactated Ringer's (Ringers, Lactated) 1,000 mls @ 75 mls/hr IV ASDIRECTED [facility] Last Admin: 07/01/17 08:12 Dose: 75 mls/hr Magnesium Sulfate (Magnesium Sulfate 4 Gm In Water 100 Ml) Confirm Administered Dose 100 mls @ as directed .ROUTE .STK-MED ONE Stop: 06/30/17 20:21 Last Admin: 06/30/17 21:05 Dose: Not Given Magnesium Sulfate (Magnesium Sulfate 2 Gm In Water 50 Ml) Confirm Administered Dose 50 mls @ as directed .ROUTE .STK-MED ONE Stop: 06/30/17 20:21 Last Admin: 06/30/17 21:05 Dose: Not Given Magnesium Sulfate (Magnesium Sulfate 40 Gm In Water 1000 Ml) 40 gm in 1,000 mls @ 50 mls/hr IV ASDIRECTED [facility] Last Infusion: 07/01/17 22:39 Dose: 0 mls/hr Oxytocin/Lactated Ringer's (Pitocin In Lr 10 Units/1,000 Ml) 10 unit in 1,000 mls @ 500 mls/hr IV .CONTINUOUS CELI Oxytocin/Lactated Ringer's (Pitocin In Lr 10 Units/1,000 Ml) 10 unit in 1,000 mls @ 12 mls/hr IV TITRATE CELI; 2 MUNITS/MIN PRN Reason: Protocol Last Titration: 07/01/17 22:17 Dose: 0 munits/min, 0 mls/hr Cefazolin Sodium/Dextrose 2 gm (/ Premix) 50 mls @ 100 mls/hr IV ONETIME ONE Stop: 07/01/17 22:59 Last Admin: 07/02/17 00:42 Dose: Not Given Lactated Ringer's (Ringers, Lactated) Confirm Administered Dose 1,000 mls @ as directed .ROUTE .STK-MED ONE Stop: 07/01/17 23:51 Lactated Ringer's (Ringers, Lactated) Confirm Administered Dose 1,000 mls @ as directed .ROUTE .STK-MED ONE Stop: 07/01/17 23:51 Lactated Ringer's (Ringers, Lactated) 1,000 mls @ 75 mls/hr IV ASDIRECTED [facility] Last Infusion: 07/02/17 14:51 Dose: 50 mls/hr Magnesium Sulfate (Magnesium Sulfate 40 Gm In Water 1000 Ml) 40 gm in 1,000 mls @ 50 mls/hr IV ASDIRECTED [facility] Last Admin: 07/02/17 14:51 Dose: 50 mls/hr Lactated Ringer's (Ringers, Lactated) 1,000 mls @ 50 mls/hr IV ASDIRECTED [facility] Ketorolac Tromethamine (Toradol) 30 mg IVPUSH ONETIME ONE Stop: 07/02/17 08:24 Last Admin: 07/02/17 08:52 Dose: 30 mg Ketorolac Tromethamine (Toradol) 30 mg IVPUSH Q6H [facility] Stop: 07/02/17 21:16 Last Admin: 07/02/17 21:39 Dose: 30 mg Labetalol HCl (Normodyne) 20 mg IVPUSH ONETIME ONE PRN Reason: Protocol Stop: 06/30/17 19:54 Last Admin: 06/30/17 20:00 Dose: 20 mg Labetalol HCl (Normodyne) Confirm Administered Dose 100 mg .ROUTE .STK-MED ONE Stop: 06/30/17 19:54 Last Admin: 06/30/17 21:05 Dose: Not Given Labetalol HCl (Normodyne) 40 mg IVPUSH ONETIME ONE PRN Reason: Protocol Stop: 06/30/17 20:19 Last Admin: 06/30/17 20:20 Dose: 40 mg Labetalol HCl (Normodyne) 200 mg PO ONETIME ONE Stop: 07/01/17 12:38 Last Admin: 07/01/17 12:45 Dose: 200 mg Lidocaine/Epinephrine (Xylocaine-Mpf 2%-Epi 1:200,000) Confirm Administered Dose 20 ml .ROUTE .STK-MED ONE Stop: 07/01/17 22:50 Meperidine HCl (Demerol) Confirm Administered Dose 50 mg .ROUTE .STK-MED ONE Stop: 07/01/17 23:24 Meperidine HCl (Demerol) 12.5 mg IVPUSH ONETIME CELI Last Admin: 07/02/17 00:48 Dose: 12.5 mg Metoclopramide HCl (Reglan) 10 mg IVPUSH ONETIME ONE Stop: 07/01/17 22:20 Last Admin: 07/01/17 22:37 Dose: 10 mg Misoprostol (Cytotec) Confirm Administered Dose 25 mcg .ROUTE .STK-MED ONE Stop: 06/30/17 20:39 Last Admin: 07/01/17 01:32 Dose: Not Given Misoprostol (Cytotec) 25 mcg VAG Q4H PRN PRN Reason: cervical ripening Stop: 07/01/17 04:54 Misoprostol (Cytotec) Confirm Administered Dose 25 mcg .ROUTE .STK-MED ONE Stop: 07/01/17 01:01 Last Admin: 07/01/17 01:32 Dose: Not Given Misoprostol (Cytotec) 25 mcg VAG Q4H PRN PRN Reason: cervical ripening Stop: 07/01/17 04:54 Last Admin: 07/01/17 05:03 Dose: 25 mcg Misoprostol (Cytotec) Confirm Administered Dose 600 mcg .ROUTE .STK-MED ONE Stop: 07/01/17 23:10 Last Admin: 07/01/17 23:20 Dose: 600 mcg Morphine Sulfate (Duramorph Pf) Confirm Administered Dose 10 mg .ROUTE .STK-MED ONE Stop: 07/01/17 22:48 Ondansetron HCl (Zofran) 4 mg IVPUSH Q4H PRN PRN Reason: Nausea/Vomiting Last Admin: 07/01/17 06:36 Dose: 4 mg Ondansetron HCl (Zofran) Confirm Administered Dose 4 mg .ROUTE .STK-MED ONE Stop: 07/01/17 22:44 Ondansetron HCl (Zofran) 4 mg IVPUSH ONETIME PRN PRN Reason: Nausea/Vomiting Last Admin: 07/02/17 09:58 Dose: 4 mg Oxytocin (Pitocin) Confirm Administered Dose 10 unit .ROUTE .STK-MED ONE Stop: 07/01/17 22:44 Oxytocin (Pitocin) Confirm Administered Dose 10 unit .ROUTE .STK-MED ONE Stop: 07/02/17 00:42 Promethazine HCl (Phenergan) 12.5 mg IM ONETIME ONE Stop: 07/01/17 08:51 Last Admin: 07/01/17 09:19 Dose: 12.5 mg Sertraline HCl (Zoloft) 25 mg PO DAILY CELI Sodium Bicarbonate (Sodium Bicarbonate 8.4%) Confirm Administered Dose 50 meq .ROUTE .STK-MED ONE Stop: 07/01/17 22:50 Sodium Chloride (Saline Flush) 10 ml FLUSH ASDIRECTED PRN PRN Reason: Keep Vein Open Zolpidem Tartrate (Ambien) 5 mg PO BEDTIME PRN PRN Reason: Insomnia Last Admin: 06/30/17 23:00 Dose: 5 mg *Q Meaningful Use (DIS) - VTE *Q VTE Criteria *Q: - Stroke *Q Stroke Criteria *Q: - AMI *Q AMI Criteria *Q:
[2017-07-04 09:00] VITALS: BP 141/96
[2017-07-04] MEDS ORDERED: Bupivacaine 0.5% 10 ML SDV ONE (10:00)
== END 2017-07-04 12:45 | disposition home or self-care (01) | DRG 766 ==
LOC: JD.OBCHECK 18:29 → JD.OB 18:31 → JD.OBCHECK 20:56 → JD.OB 07-01 23:08 → OBSVTOIN 07-01 23:14
PROVIDERS: ADMIT Obstetrics & Gynecology; ATTEND Obstetrics & Gynecology
PROC: 10D00Z1 Extraction of Products of Conception, Low, Open Approach (ICD-10-PCS; principal; 2017-07-01)
PROC: 00HU33Z Insertion of Infusion Device into Spinal Canal, Percutaneous Approach (ICD-10-PCS; 2017-07-01)
PROC: 3E0R3CZ (ICD-10-PCS; 2017-07-01)
PROC: 3E0P7GC Introduction of Other Therapeutic Substance into Female Reproductive, Via Natural or Artificial Opening (ICD-10-PCS; 2017-07-01)
DX: O14.94 Unspecified pre-eclampsia, complicating childbirth (principal); Z3A.40 40 weeks gestation of pregnancy; Z37.0 Single live birth; O99.344 Other mental disorders complicating childbirth; F41.8 Other specified anxiety disorders; O62.0 Primary inadequate contractions; O77.0 Labor and delivery complicated by meconium in amniotic fluid; Z91.010 Allergy to peanuts; Z91.018 Allergy to other foods; Z88.5 Allergy status to narcotic agent; Z91.02 Food additives allergy status; Z91.09 Other allergy status, other than to drugs and biological substances; Z79.899 Other long term (current) drug therapy; G89.29 Other chronic pain
CPT/HCPCS: 01967; 01968; 36415; 80306; 81003; 82565; 83615; 84450; 84460; 84520; 84550; 85025; 85027; 86850; 86900; 86901; 90715; A9270-GY; J0690; J1885; J2175; J2270; J2405; J2550; J2590; J2765; J3010; J3475; J7120; Q0169